=== PATIENT | female | born 1940 | race Caucasian/White ===

== ENCOUNTER 2017-10-26 12:05 | Emergency (ER) | payer MEDICARE, OTHER ==
[~2017-10-26] VITALS: Ht 157.5 cm; Wt 66.0 kg
[~2017-10-26 12:05] MED LIST: ASPI-1159 PO; CALC0.253 PO; CLOP75TA33 PO; FERR-63 PO; FISH OIL PO; FURO-151 PO; FURO-152 PO; GABA-529 PO; GABA-531 PO; LEVO25TA7 PO; LOSA50TA20 PO; LOVA10TA54 PO; METO25TA6 PO; PROT40 PO; VITAMIN B COMPLEX PO
[2017-10-26] MEDS ORDERED: SODIUM CHLORIDE 0.9% 500 ML IV ONE (15:31)
[2017-10-26 15:39] LABS: HEMATOCRIT. 25.7 % (36.0-48.0); HEMOGLOBIN. 8.9 g/dL (12.0-16.0); MEAN CORPUSCULAR HEMOGLOBIN 32.7 pg (28.0-32.0); MEAN CORPUSCULAR VOLUME 94.2 fL (81.0-99.0); MEAN PLATELET VOLUME 8.3 fl (7.4-10.4); PLATELET 182 x1000/uL (130-400); RED BLOOD CELL COUNT 2.72 mill/uL (4.2-5.4); RED CELL DISTRIBUTION WIDTH 14.7 % (11.6-14.6)
[2017-10-26 15:42] LABS: CHLORIDE 98 mEq/L (98-107)
[2017-10-26] MEDS ORDERED: ONDANSETRON HCL 4MG/2ML VIAL IV ONE (15:45)
[2017-10-26 15:53] LABS: PARTIAL THROMBOPLASTIN TIME 27.4 sec (23.4-31.0); PROTHROMBIN TIME 10.7 sec (9.4-11.6)
[2017-10-26 16:13] LABS: PLATELET ESTIMATE NORMAL
[2017-10-26 18:01] VITALS: BP 168/47
== END 2017-10-26 18:13 | disposition home or self-care (01) ==
LOC: ER 12:05
DX: R11.2 Nausea with vomiting, unspecified (principal); R19.7 Diarrhea, unspecified; R42 Dizziness and giddiness; I12.0 Hypertensive chronic kidney disease with stage 5 chronic kidney disease or end stage renal disease; N18.6 End stage renal disease; Z79.82 Long term (current) use of aspirin; Z99.2 Dependence on renal dialysis; Z86.73 Personal history of transient ischemic attack (TIA), and cerebral infarction without residual deficits; Z79.899 Other long term (current) drug therapy
CPT/HCPCS: 36415; 80053; 83690; 85025; 85610; 85730; 96361; 96374; 99285; J2405; J7030

== ENCOUNTER 2017-12-21 09:52 | Inpatient (IN) | payer MEDICARE ==
[~2017-12-21] VITALS: Ht 154.9 cm; Wt 64.0 kg
[2017-12-21 11:54] LABS: CHLORIDE 99 mEq/L (98-107)
[2017-12-21 12:05] LABS: HEMATOCRIT. 30.8 % (36.0-48.0); HEMOGLOBIN. 10.2 g/dL (12.0-16.0); MEAN CORPUSCULAR HEMOGLOBIN 31.5 pg (28.0-32.0); MEAN CORPUSCULAR VOLUME 95.5 fL (81.0-99.0); MEAN PLATELET VOLUME 9.4 fl (7.4-10.4); RED BLOOD CELL COUNT 3.23 mill/uL (4.2-5.4); RED CELL DISTRIBUTION WIDTH 14.5 % (11.6-14.6)
[2017-12-21 12:11] LABS: PLATELET 126 x1000/uL (130-400)
[2017-12-21] MEDS ORDERED: DIPHENHYDRAMINE 50MG/ML VIAL IV PRN (17:15)
[2017-12-21] MEDS ORDERED: GUAIFENESIN 200MG/10ML SUGAR FREE UDC PO PRN (17:15)
[2017-12-21] MEDS ORDERED: LORAZEPAM 2MG/ML CPJ IV PRN (17:15)
[2017-12-21] MEDS ORDERED: HYDROCODONE/ACETAMINOPHEN 5/325MG TABLET PO PRN (17:15)
[2017-12-21] MEDS ORDERED: ACETAMINOPHEN 325MG TABLET PO PRN (17:15)
[2017-12-21] MEDS ORDERED: IPRATROPIUM/ALBUTEROL 0.5-3(2.5)MG/3ML NEB INH PRN (17:15)
[2017-12-21] MEDS ORDERED: DOCUSATE SODIUM 100MG CAPSULE PO PRN (17:15)
[2017-12-21] MEDS ORDERED: MAGNESIUM/ALUMINUM HYDROXIDE/SIMETHICONE 30ML UDC PO PRN (17:15)
[2017-12-21] MEDS ORDERED: NA PHOS,M-B/NA PHOS,DI-BA ENEMA 118ML PR PRN (18:00)
[2017-12-21] MEDS ORDERED: EPOETIN ALFA 4000UNITS/ML VIAL SUBCUT SCH (18:30)
[2017-12-21] MEDS ORDERED: ONDANSETRON HCL 4MG/2ML VIAL IV PRN (20:00)
[2017-12-21] MEDS: CLONIDINE 0.1MG TABLET PO PRN (20:27)
[2017-12-22] VITALS (7 sets, daily range): BP systolic 105–189; BP diastolic 28–51
[2017-12-22 00:29] LABS: CHLORIDE 99 mEq/L (98-107)
[2017-12-22] MEDS: CLONIDINE 0.1MG TABLET PO PRN (03:44)
[2017-12-22] MEDS: ENOXAPARIN 30MG/0.3ML SYR SUBCUT SCH (08:47)
[2017-12-22] MEDS: ASPIRIN 81MG EC TABLET PO SCH (08:47)
[2017-12-22 09:39] LABS: BASOPHILS % 1.1 % (0.0-2.0); EOSINOPHILS % 4.5 % (0.0-5.0); HEMATOCRIT. 24.8 % (36.0-48.0); HEMOGLOBIN. 8.4 g/dL (12.0-16.0); MEAN CORPUSCULAR HEMOGLOBIN 31.7 pg (28.0-32.0); MEAN CORPUSCULAR VOLUME 92.8 fL (81.0-99.0); MEAN PLATELET VOLUME 8.7 fl (7.4-10.4); MONOCYTES % 7.2 % (2.0-8.0); NEUTROPHILS % 68.2 % (40.0-76.0); PLATELET 200 x1000/uL (130-400); RED BLOOD CELL COUNT 2.67 mill/uL (4.2-5.4); RED CELL DISTRIBUTION WIDTH 14.3 % (11.6-14.6)
[2017-12-22 10:26] LABS: CHLORIDE 100 mEq/L (98-107)
[2017-12-22 10:40] LABS: LDL CHOLESTEROL 84 mg/dL (5-100)
[2017-12-22 10:42] LABS: HDL CHOLESTEROL 44 mg/dL (40-59); T4 FREE 1.22 ng/dL (0.76-1.46)
[2017-12-23] VITALS (7 sets, daily range): BP systolic 116–174; BP diastolic 41–58
[2017-12-23] MEDS: ASPIRIN 81MG EC TABLET PO SCH (08:36)
[2017-12-23] MEDS: ENOXAPARIN 30MG/0.3ML SYR SUBCUT SCH (08:37)
== END 2017-12-23 22:55 | DRG 70 ==
LOC: ER 10:06 → 6WST 15:55 → ENRESERV 12-22
PROVIDERS: ADMIT Internal Medicine; ATTEND Internal Medicine
PROC: 5A1D70Z Performance of Urinary Filtration, Intermittent, Less than 6 Hours Per Day (ICD-10-PCS; principal; 2017-12-23)
DX: G93.41 Metabolic encephalopathy (principal); N18.6 End stage renal disease; I13.2 Hypertensive heart and chronic kidney disease with heart failure and with stage 5 chronic kidney disease, or end stage renal disease; E46 Unspecified protein-calorie malnutrition; I95.3 Hypotension of hemodialysis; I50.9 Heart failure, unspecified; G45.9 Transient cerebral ischemic attack, unspecified; D64.9 Anemia, unspecified; R55 Syncope and collapse; F32.9 Major depressive disorder, single episode, unspecified; E78.00 Pure hypercholesterolemia, unspecified; Z79.02 Long term (current) use of antithrombotics/antiplatelets; Z79.82 Long term (current) use of aspirin; Z79.899 Other long term (current) drug therapy; Z86.711 Personal history of pulmonary embolism; Z86.73 Personal history of transient ischemic attack (TIA), and cerebral infarction without residual deficits; Z68.26 Body mass index [BMI] 26.0-26.9, adult
CPT/HCPCS: 36415; 80048; 80053; 80061; 84439; 84443; 84484; 85025; 93005; 97162; 97530; A6261; J0885; J1650; J2060; J7030

== ENCOUNTER 2018-07-16 08:35 | Inpatient (IN) | payer MEDICARE ==
[~2018-07-16] VITALS: Ht 160 cm; Wt 59.4 kg
[2018-07-16] MEDS ORDERED: HYDRALAZINE 20MG/ML VIAL IV ONE (10:30)
[2018-07-16 11:42] LABS: EOSINOPHILS % 2.6 % (0.0-5.0); HEMATOCRIT. 34.7 % (36.0-48.0); HEMOGLOBIN. 11.6 g/dL (12.0-16.0); LYMPHOCYTES % 16.5 % (20.0-50.0); MEAN CORPUSCULAR HEMOGLOBIN 32.2 pg (28.0-32.0); MEAN CORPUSCULAR VOLUME 96.6 fL (81.0-99.0); MEAN PLATELET VOLUME 8.8 fl (7.4-10.4); MONOCYTES % 6.8 % (2.0-8.0); NEUTROPHILS % 73.1 % (40.0-76.0); PLATELET 190 x1000/uL (130-400); RED BLOOD CELL COUNT 3.59 mill/uL (4.2-5.4); RED CELL DISTRIBUTION WIDTH 14.9 % (11.6-14.6)
[2018-07-16 11:47] LABS: CHLORIDE 105 mEq/L (98-107)
[2018-07-16 11:51] LABS: PARTIAL THROMBOPLASTIN TIME 26.6 sec (23.4-31.0)
[2018-07-16] MEDS ORDERED: LIDOCAINE HCL 1% 20ML VIAL (Pyxis) INJ ONE (14:54)
[2018-07-16 18:49] VITALS: BP 162/63
[2018-07-16] MEDS ORDERED: DONE23TA3 PO (18:59)
[2018-07-16] MEDS ORDERED: LOVASTATIN 20 MG PO SCH (19:30)
[2018-07-16] MEDS ORDERED: MEDICATION NOT ON FORMULARY EA (Metoprolol Tartrate 25 MG) PO SCH (19:30)
[2018-07-16] MEDS ORDERED: MEDICATION NOT ON FORMULARY EA (Clopidogrel Bisulfate (Clopidogrel) 75 MG) PO SCH (19:30)
[2018-07-16] MEDS ORDERED: MEDICATION NOT ON FORMULARY EA (Gabapentin 1 CAP) PO SCH (19:30)
[2018-07-16] MEDS ORDERED: MEDICATION NOT ON FORMULARY EA (Aspirin (Aspirin Low Dose) 1 TAB) PO SCH (19:30)
[2018-07-16] MEDS ORDERED: VITAMIN B COMPLEX PO SCH (19:30)
[2018-07-16] MEDS ORDERED: MEDICATION NOT ON FORMULARY EA (Calcitriol 1 CAP) PO SCH (19:30)
[2018-07-16] MEDS ORDERED: FISH OIL PO SCH (19:30)
[2018-07-16] MEDS ORDERED: MEDICATION NOT ON FORMULARY EA (Pantoprazole Sodium (Protonix) 40 MG) PO SCH (19:30)
[2018-07-16] MEDS ORDERED: MEDICATION NOT ON FORMULARY EA (Levothyroxine Sodium 1 TAB) PO SCH (19:30)
[2018-07-16 20:00] VITALS: BP 157/51
[2018-07-16] MEDS ORDERED: MEDICATION NOT ON FORMULARY EA (Losartan Potassium 1 TAB) PO SCH (21:00)
[2018-07-16] MEDS ORDERED: MEDICATION NOT ON FORMULARY EA (Losartan Potassium 50 MG) PO SCH (21:00)
[2018-07-16] MEDS ORDERED: MEDICATION NOT ON FORMULARY EA (Gabapentin 300 MG) PO SCH (21:00)
[2018-07-16] MEDS: PANTOPRAZOLE 40MG DR TABLET PO SCH (22:15)
[2018-07-16] MEDS: FERROUS SULFATE 325MG TABLET PO SCH (22:15)
[2018-07-17 00:27] VITALS: BP 188/51
[2018-07-17] MEDS: IRON SUCROSE COMPLEX 100 MG/5 ML ML IV SCH ×2 (00:54→10:28)
[2018-07-17] MEDS: CLONIDINE 0.2MG TABLET PO PRN (01:07)
[2018-07-17 04:00] VITALS: BP 108/46
[2018-07-17] MEDS: LEVOTHYROXINE SODIUM 25MCG TABLET PO SCH (06:34)
[2018-07-17] MEDS: PANTOPRAZOLE 40MG DR TABLET PO SCH ×2 (06:34→20:59)
[2018-07-17] MEDS ORDERED: FERROUS SULFATE 325MG TABLET PO SCH (07:50)
[2018-07-17] MEDS: FERROUS SULFATE 325MG TABLET PO SCH ×3 (07:50→16:42)
[2018-07-17 08:00] LABS: HEMOGLOBIN. 9.7 g/dL (12.0-16.0); MEAN CORPUSCULAR HEMOGLOBIN 31.9 pg (28.0-32.0); MEAN CORPUSCULAR VOLUME 95.9 fL (81.0-99.0); PLATELET 168 x1000/uL (130-400); RED BLOOD CELL COUNT 3.02 mill/uL (4.2-5.4); RED CELL DISTRIBUTION WIDTH 15.1 % (11.6-14.6)
[2018-07-17] MEDS ORDERED: MEDICATION NOT ON FORMULARY EA (Calcitriol 0.25 MCG) PO SCH ×2 (09:00)
[2018-07-17] MEDS ORDERED: LEVOTHYROXINE SODIUM 25 MCG PO SCH (09:00)
[2018-07-17] MEDS: METOPROLOL TARTRATE 25MG TABLET PO SCH ×2 (09:00→17:00)
[2018-07-17] MEDS ORDERED: MEDICATION NOT ON FORMULARY EA (Gabapentin 100 MG) PO SCH (09:00)
[2018-07-17] MEDS: DONEPEZIL HCL 5MG TABLET PO SCH (10:26)
[2018-07-17] MEDS: GABAPENTIN 100MG CAPSULE PO SCH (10:26)
[2018-07-17] MEDS: FISH OIL/OMEGA-3 FATTY ACIDS 1000MG CAPSULE PO SCH (10:26)
[2018-07-17] MEDS: CLOPIDOGREL 75MG TABLET PO SCH (10:26)
[2018-07-17] MEDS: FOLIC ACID/VITAMIN B COMP W-C TABLET PO SCH (10:26)
[2018-07-17] MEDS: CALCITRIOL 0.25MCG CAPSULE PO SCH (10:26)
[2018-07-17] MEDS: ASPIRIN 81MG TABLET PO SCH (10:27)
[2018-07-17 12:00] VITALS: BP 130/46
[2018-07-17 14:15] LABS: PLATELET ESTIMATE NORMAL
[2018-07-17 16:00] VITALS: BP 130/40
[2018-07-17 20:00] VITALS: BP 150/49
[2018-07-17] MEDS: ATORVASTATIN CALCIUM 10MG TABLET PO SCH (20:58)
[2018-07-17] MEDS: LOSARTAN POTASSIUM 50 MG TABLET PO SCH (20:59)
[2018-07-17] MEDS: GABAPENTIN 300MG CAPSULE PO SCH (21:04)
[2018-07-18 02:00] VITALS: BP 142/54
[2018-07-18 04:00] VITALS: BP 147/58
[2018-07-18] MEDS: PANTOPRAZOLE 40MG DR TABLET PO SCH ×2 (04:44→20:56)
[2018-07-18] MEDS: FERROUS SULFATE 325MG TABLET PO SCH ×3 (04:44→08:14)
[2018-07-18] MEDS: LEVOTHYROXINE SODIUM 25MCG TABLET PO SCH (04:44)
[2018-07-18 08:00] VITALS: BP 128/30
[2018-07-18] MEDS: METOPROLOL TARTRATE 25MG TABLET PO SCH (08:19)
[2018-07-18] MEDS: CALCITRIOL 0.25MCG CAPSULE PO SCH (09:28)
[2018-07-18] MEDS: FISH OIL/OMEGA-3 FATTY ACIDS 1000MG CAPSULE PO SCH (09:28)
[2018-07-18] MEDS: ASPIRIN 81MG TABLET PO SCH (09:28)
[2018-07-18] MEDS: FOLIC ACID/VITAMIN B COMP W-C TABLET PO SCH (09:28)
[2018-07-18] MEDS: GABAPENTIN 100MG CAPSULE PO SCH (09:29)
[2018-07-18] MEDS: CLOPIDOGREL 75MG TABLET PO SCH (09:29)
[2018-07-18] MEDS: DONEPEZIL HCL 5MG TABLET PO SCH (09:29)
[2018-07-18] MEDS: IRON SUCROSE COMPLEX 100 MG/5 ML ML IV SCH (10:45)
[2018-07-18 12:00] VITALS: BP 142/45
[2018-07-18 16:00] VITALS: BP 141/41
[2018-07-18 20:00] VITALS: BP 160/48
[2018-07-18] MEDS: LOSARTAN POTASSIUM 50 MG TABLET PO SCH (20:55)
[2018-07-18] MEDS: ATORVASTATIN CALCIUM 10MG TABLET PO SCH (20:55)
[2018-07-18] MEDS: GABAPENTIN 300MG CAPSULE PO SCH (20:55)
[2018-07-19] VITALS (27 sets, daily range): BP systolic 106–175; BP diastolic 30–77
[2018-07-19] MEDS: CLONIDINE 0.2MG TABLET PO PRN (01:10)
[2018-07-19] MEDS: LEVOTHYROXINE SODIUM 25MCG TABLET PO SCH (06:27)
[2018-07-19] MEDS: PANTOPRAZOLE 40MG DR TABLET PO SCH ×2 (06:27→20:37)
[2018-07-19] MEDS ORDERED: LIDOCAINE HCL 1% 20ML VIAL (Pyxis) INJ ONE (07:33)
[2018-07-19] MEDS ORDERED: IOHEXOL-300 100 ML BOTTLE ONE (07:33)
[2018-07-19] MEDS ORDERED: HEPARIN 1000 UNITS/ML 10ML ONE (07:33)
[2018-07-19] MEDS ORDERED: CEFAZOLIN 1000MG PREMIX 50 ML IV NR (07:45)
[2018-07-19] MEDS ORDERED: FENTANYL CITRATE/PF 50MCG/ML 2ML VIAL ONE (08:00)
[2018-07-19] MEDS ORDERED: CEFAZOLIN 1000MG PREMIX 50 ML IV ONE (08:00)
[2018-07-19] MEDS ORDERED: HEPARIN SODIUM 1,000 UNIT/1ML VIAL IV ONE (08:45)
[2018-07-19] MEDS ORDERED: IOHEXOL-300 50 ML BOTTLE IV ONE (08:58)
[2018-07-19] MEDS: ASPIRIN 81MG TABLET PO SCH (09:00)
[2018-07-19] MEDS: METOPROLOL TARTRATE 25MG TABLET PO SCH ×2 (09:00→18:15)
[2018-07-19] MEDS: CLOPIDOGREL 75MG TABLET PO SCH (09:00)
[2018-07-19] MEDS ORDERED: FENTANYL CITRATE/PF 50MCG/ML 2ML VIAL IV ONE (09:15)
[2018-07-19] MEDS: IRON SUCROSE COMPLEX 100 MG/5 ML ML IV SCH (11:23)
[2018-07-19] MEDS: CALCITRIOL 0.25MCG CAPSULE PO SCH (11:23)
[2018-07-19] MEDS: FISH OIL/OMEGA-3 FATTY ACIDS 1000MG CAPSULE PO SCH (11:23)
[2018-07-19] MEDS: FOLIC ACID/VITAMIN B COMP W-C TABLET PO SCH (11:23)
[2018-07-19] MEDS: GABAPENTIN 100MG CAPSULE PO SCH (11:24)
[2018-07-19] MEDS: DONEPEZIL HCL 5MG TABLET PO SCH (11:24)
[2018-07-19] MEDS: FERROUS SULFATE 325MG TABLET PO SCH ×3 (11:24→18:11)
[2018-07-19] MEDS: ATORVASTATIN CALCIUM 10MG TABLET PO SCH (20:37)
[2018-07-19] MEDS: GABAPENTIN 300MG CAPSULE PO SCH (20:37)
[2018-07-19] MEDS: LOSARTAN POTASSIUM 50 MG TABLET PO SCH (20:37)
[2018-07-19] MEDS ORDERED: EPOETIN ALFA 4000UNITS/ML VIAL SUBCUT SCH (21:00)
[2018-07-20] VITALS: BP 137/42
[2018-07-20 04:00] VITALS: BP 129/41
[2018-07-20] MEDS: LEVOTHYROXINE SODIUM 25MCG TABLET PO SCH (06:09)
[2018-07-20] MEDS: PANTOPRAZOLE 40MG DR TABLET PO SCH (06:09)
[2018-07-20] MEDS: FERROUS SULFATE 325MG TABLET PO SCH ×3 (07:50→15:43)
[2018-07-20 08:00] VITALS: BP 152/42
[2018-07-20] MEDS: CALCITRIOL 0.25MCG CAPSULE PO SCH (10:31)
[2018-07-20] MEDS: FISH OIL/OMEGA-3 FATTY ACIDS 1000MG CAPSULE PO SCH (10:31)
[2018-07-20] MEDS: IRON SUCROSE COMPLEX 100 MG/5 ML ML IV SCH (10:31)
[2018-07-20] MEDS: ASPIRIN 81MG TABLET PO SCH (10:31)
[2018-07-20] MEDS: DONEPEZIL HCL 5MG TABLET PO SCH (10:32)
[2018-07-20] MEDS: METOPROLOL TARTRATE 25MG TABLET PO SCH ×2 (10:32→18:02)
[2018-07-20] MEDS: CLOPIDOGREL 75MG TABLET PO SCH (10:33)
[2018-07-20] MEDS: GABAPENTIN 100MG CAPSULE PO SCH (10:33)
[2018-07-20] MEDS: FOLIC ACID/VITAMIN B COMP W-C TABLET PO SCH (10:33)
[2018-07-20 11:47] VITALS: BP 156/36
[2018-07-20 13:32] LABS: BASOPHILS % 0.7 % (0.0-2.0); EOSINOPHILS % 1.8 % (0.0-5.0); HEMATOCRIT. 29.7 % (36.0-48.0); HEMOGLOBIN. 10.1 g/dL (12.0-16.0); LYMPHOCYTES % 9.6 % (20.0-50.0); MEAN CORPUSCULAR HEMOGLOBIN 32.3 pg (28.0-32.0); MEAN CORPUSCULAR VOLUME 95.1 fL (81.0-99.0); MEAN PLATELET VOLUME 9.2 fl (7.4-10.4); MONOCYTES % 8.2 % (2.0-8.0); NEUTROPHILS % 79.7 % (40.0-76.0); PLATELET 143 x1000/uL (130-400); RED BLOOD CELL COUNT 3.13 mill/uL (4.2-5.4); RED CELL DISTRIBUTION WIDTH 15.1 % (11.6-14.6)
[2018-07-20 15:35] VITALS: BP 143/95
[2018-07-20 20:00] VITALS: BP 160/37
[2018-07-20] MEDS: ATORVASTATIN CALCIUM 10MG TABLET PO SCH (21:06)
[2018-07-20] MEDS: LOSARTAN POTASSIUM 50 MG TABLET PO SCH (21:06)
[2018-07-20] MEDS: GABAPENTIN 300MG CAPSULE PO SCH (21:06)
[2018-07-21] VITALS: BP 166/38
[2018-07-21] MEDS: CLONIDINE 0.2MG TABLET PO PRN (01:09)
[2018-07-21 04:00] VITALS: BP 159/49
[2018-07-21] MEDS: LEVOTHYROXINE SODIUM 25MCG TABLET PO SCH (06:16)
[2018-07-21 08:00] VITALS: BP 135/36
[2018-07-21] MEDS: METOPROLOL TARTRATE 25MG TABLET PO SCH ×2 (08:19→21:00)
[2018-07-21] MEDS: CLOPIDOGREL 75MG TABLET PO SCH (08:19)
[2018-07-21] MEDS: ASPIRIN 81MG TABLET PO SCH (08:19)
[2018-07-21] MEDS: FOLIC ACID/VITAMIN B COMP W-C TABLET PO SCH (08:27)
[2018-07-21] MEDS: GABAPENTIN 100MG CAPSULE PO SCH (08:27)
[2018-07-21] MEDS: FERROUS SULFATE 325MG TABLET PO SCH ×3 (08:27→18:14)
[2018-07-21] MEDS: FISH OIL/OMEGA-3 FATTY ACIDS 1000MG CAPSULE PO SCH (08:27)
[2018-07-21] MEDS: DONEPEZIL HCL 5MG TABLET PO SCH (08:28)
[2018-07-21] MEDS: CALCITRIOL 0.25MCG CAPSULE PO SCH (08:28)
[2018-07-21] MEDS: FAMOTIDINE 20MG TABLET PO SCH (09:15)
[2018-07-21 12:00] VITALS: BP 117/42
[2018-07-21 16:00] VITALS: BP 114/31
[2018-07-21 20:00] VITALS: BP 133/41
[2018-07-21] MEDS: LOSARTAN POTASSIUM 50 MG TABLET PO SCH (21:00)
[2018-07-21] MEDS: ATORVASTATIN CALCIUM 10MG TABLET PO SCH (21:20)
[2018-07-21] MEDS: GABAPENTIN 300MG CAPSULE PO SCH (21:20)
[2018-07-22] VITALS (9 sets, daily range): BP systolic 129–161; BP diastolic 45–59
[2018-07-22] MEDS: LEVOTHYROXINE SODIUM 25MCG TABLET PO SCH (06:17)
[2018-07-22 06:46] LABS: HEMATOCRIT. 28.6 % (36.0-48.0); MEAN CORPUSCULAR HEMOGLOBIN 33.9 pg (28.0-32.0); MEAN CORPUSCULAR VOLUME 96.8 fL (81.0-99.0); RED BLOOD CELL COUNT 2.95 mill/uL (4.2-5.4); RED CELL DISTRIBUTION WIDTH 15.1 % (11.6-14.6)
[2018-07-22 08:34] LABS: PLATELET ESTIMATE NORMAL
[2018-07-22 08:53] LABS: PLATELET 194 x1000/uL (130-400)
[2018-07-22 08:54] LABS: MEAN PLATELET VOLUME 10.2 fl (7.4-10.4)
[2018-07-22] MEDS: FAMOTIDINE 20MG TABLET PO SCH (09:22)
[2018-07-22] MEDS: FISH OIL/OMEGA-3 FATTY ACIDS 1000MG CAPSULE PO SCH (09:22)
[2018-07-22] MEDS: FERROUS SULFATE 325MG TABLET PO SCH ×2 (09:22→12:59)
[2018-07-22] MEDS: FOLIC ACID/VITAMIN B COMP W-C TABLET PO SCH (09:22)
[2018-07-22] MEDS: ASPIRIN 81MG TABLET PO SCH (09:22)
[2018-07-22] MEDS: GABAPENTIN 100MG CAPSULE PO SCH (09:22)
[2018-07-22] MEDS: CALCITRIOL 0.25MCG CAPSULE PO SCH (09:22)
[2018-07-22] MEDS: CLOPIDOGREL 75MG TABLET PO SCH (09:24)
[2018-07-22] MEDS: METOPROLOL TARTRATE 25MG TABLET PO SCH (09:24)
[2018-07-22] MEDS: DONEPEZIL HCL 5MG TABLET PO SCH (09:25)
== END 2018-07-22 16:46 | disposition home or self-care (01) | DRG 252 ==
LOC: ER 08:35 → 6WST 11:52 → EDBEDREQ 11:56 → ENRESERV 15:57
PROVIDERS: ADMIT Internal Medicine; ATTEND Internal Medicine
PROC: 02HV33Z Insertion of Infusion Device into Superior Vena Cava, Percutaneous Approach (ICD-10-PCS; principal; 2018-07-16)
PROC: B518ZZA Fluoroscopy of Superior Vena Cava, Guidance (ICD-10-PCS; 2018-07-16)
PROC: B548ZZA Ultrasonography of Superior Vena Cava, Guidance (ICD-10-PCS; 2018-07-16)
PROC: 5A1D70Z Performance of Urinary Filtration, Intermittent, Less than 6 Hours Per Day (ICD-10-PCS; 2018-07-17)
PROC: 05773ZZ Dilation of Right Axillary Vein, Percutaneous Approach (ICD-10-PCS; 2018-07-19)
PROC: 05CY3ZZ Extirpation of Matter from Upper Vein, Percutaneous Approach (ICD-10-PCS; 2018-07-19)
PROC: 057Y3DZ Dilation of Upper Vein with Intraluminal Device, Percutaneous Approach (ICD-10-PCS; 2018-07-19)
PROC: 03CY3ZZ Extirpation of Matter from Upper Artery, Percutaneous Approach (ICD-10-PCS; 2018-07-19)
PROC: B5181ZA Fluoroscopy of Superior Vena Cava using Low Osmolar Contrast, Guidance (ICD-10-PCS; 2018-07-19)
PROC: B5171ZA Fluoroscopy of Left Subclavian Vein using Low Osmolar Contrast, Guidance (ICD-10-PCS; 2018-07-19)
PROC: B31N1ZZ Fluoroscopy of Other Upper Arteries using Low Osmolar Contrast (ICD-10-PCS; 2018-07-19)
PROC: B51W1ZZ Fluoroscopy of Dialysis Shunt/Fistula using Low Osmolar Contrast (ICD-10-PCS; 2018-07-19)
PROC: 5A1D70Z Performance of Urinary Filtration, Intermittent, Less than 6 Hours Per Day (ICD-10-PCS; 2018-07-19)
PROC: 5A1D70Z Performance of Urinary Filtration, Intermittent, Less than 6 Hours Per Day (ICD-10-PCS; 2018-07-21)
DX: T82.510A Breakdown (mechanical) of surgically created arteriovenous fistula, initial encounter (principal); N18.6 End stage renal disease; E46 Unspecified protein-calorie malnutrition; I13.11 Hypertensive heart and chronic kidney disease without heart failure, with stage 5 chronic kidney disease, or end stage renal disease; E03.9 Hypothyroidism, unspecified; E78.00 Pure hypercholesterolemia, unspecified; I73.9 Peripheral vascular disease, unspecified; I65.21 Occlusion and stenosis of right carotid artery; E87.5 Hyperkalemia; T82.858A Stenosis of other vascular prosthetic devices, implants and grafts, initial encounter; R00.1 Bradycardia, unspecified; R55 Syncope and collapse; Y83.2 Surgical operation with anastomosis, bypass or graft as the cause of abnormal reaction of the patient, or of later complication, without mention of misadventure at the time of the procedure; D64.9 Anemia, unspecified; E78.5 Hyperlipidemia, unspecified; Z86.73 Personal history of transient ischemic attack (TIA), and cerebral infarction without residual deficits; Z99.2 Dependence on renal dialysis; Z68.23 Body mass index [BMI] 23.0-23.9, adult; Z79.899 Other long term (current) drug therapy; Z79.82 Long term (current) use of aspirin; Y92.89 Other specified places as the place of occurrence of the external cause
CPT/HCPCS: 36415; 36556; 36906; 36907; 70544; 70553; 71045; 76937; 77001; 80048; 82962; 83735; 84443; 85007; 85027; 93005; 93306; 93880; 96374; 97162; 97166; 99285; C1752; C1769; J0360; J0690; J0885; J1642; J1644; J3010; J3490; J7050; Q9967

== ENCOUNTER 2018-07-30 09:27 | Inpatient (IN) | payer MEDICARE ==
[~2018-07-30] VITALS: Ht 157.5 cm; Wt 67.1 kg
[~2018-07-30 09:27] MED LIST changes: +DONE23TA3 PO; -FURO-151 PO; -FURO-152 PO
[2018-07-30 10:51] LABS: BG BASE EXCESS 6.1 mmol/L (-2.0-2.0); BG CARBOXYHEMOGLOBIN 0.6 % (0.5-1.5); BG DEOXYHEMOGLOBIN 5.9 % (0.0-5.0); BG FRACTION INSPIRED OXYGEN 21; BG HCO3 ACT 30.6 mmol/L (22.0-26.0); BG METHEMOGLOBIN 0.3 % (0.0-1.5); BG OXYHEMOGLOBIN 93.2 % (94.0-97.0); BG PCO2 44.2 mmHg (35.0-45.0); BG PH 7.458 (7.350-7.450); BG PO2 71.5 mmHg (75.0-100.0); BG SAMPLE SITE RIGHT RADIAL; BG TOTAL HEMOGLOBIN 8.8 g/dL (12.0-18.0); BG VENT MODE ROOM AIR
[2018-07-30 11:52] LABS: BASOPHILS % 1.2 % (0.0-2.0); EOSINOPHILS % 3.1 % (0.0-5.0); HEMATOCRIT. 28.7 % (36.0-48.0); HEMOGLOBIN. 9.7 g/dL (12.0-16.0); LYMPHOCYTES % 16.4 % (20.0-50.0); MEAN CORPUSCULAR HEMOGLOBIN 32.9 pg (28.0-32.0); MEAN CORPUSCULAR VOLUME 97.3 fL (81.0-99.0); MEAN PLATELET VOLUME 8.6 fl (7.4-10.4); NEUTROPHILS % 74.3 % (40.0-76.0); PLATELET 228 x1000/uL (130-400); RED BLOOD CELL COUNT 2.95 mill/uL (4.2-5.4); RED CELL DISTRIBUTION WIDTH 15.1 % (11.6-14.6)
[2018-07-30 12:02] LABS: PARTIAL THROMBOPLASTIN TIME 26.1 sec (23.4-31.0)
[2018-07-30 12:07] LABS: PHOSPHORUS 3.3 mg/dL (2.5-4.9)
[2018-07-30] MEDS ORDERED: ONDANSETRON HCL 4MG/2ML INJ IV PRN (12:45)
[2018-07-30] MEDS ORDERED: ACETAMINOPHEN 325MG TABLET PO PRN (12:45)
[2018-07-30] MEDS ORDERED: SODIUM BICARBONATE 4% (2.4MEQ) 5ML VIAL IV ONE (13:03)
[2018-07-30] MEDS ORDERED: LIDOCAINE HCL 1% 20ML VIAL (Pyxis) INJ ONE (13:04)
[2018-07-30] MEDS: NIFEDIPINE XL 60MG TAB PO SCH ×2 (13:15→20:30)
[2018-07-30] MEDS ORDERED: LIDOCAINE HCL/PF 1% 2ML VIAL ONE (14:48)
[2018-07-30 16:17] VITALS: BP 198/61
[2018-07-30] MEDS: LOSARTAN POTASSIUM 100 MG TABLET PO SCH (16:45)
[2018-07-30] MEDS ORDERED: CLONIDINE 0.1MG TABLET PO PRN (16:45)
[2018-07-30 17:54] VITALS: BP 198/61
[2018-07-30] MEDS ORDERED: CEFAZOLIN 1000MG PREMIX 50 ML IV SCH (18:00)
[2018-07-30] MEDS ORDERED: GABA-529 PO (18:10)
[2018-07-30] MEDS ORDERED: ASCO500C15 PO (18:13)
[2018-07-30] MEDS ORDERED: CYAN1TAB43 MT (18:13)
[2018-07-30 20:00] VITALS: BP 169/48
[2018-07-30] MEDS: CLONIDINE 0.1MG TABLET PO SCH (20:30)
[2018-07-30] MEDS: ATORVASTATIN CALCIUM 20MG TABLET PO SCH (20:32)
[2018-07-30] MEDS: IRON SUCROSE COMPLEX 100 MG/5 ML ML IV SCH (20:33)
[2018-07-30] MEDS: EPOETIN ALFA 4000UNITS/ML VIAL SUBCUT SCH (21:19)
[2018-07-31] VITALS (7 sets, daily range): BP systolic 114–160; BP diastolic 33–83
[2018-07-31] MEDS: CLONIDINE 0.1MG TABLET PO SCH ×3 (05:52→21:31)
[2018-07-31 06:53] LABS: BASOPHILS % 1.1 % (0.0-2.0); EOSINOPHILS % 2.3 % (0.0-5.0); HEMATOCRIT. 23.7 % (36.0-48.0); LYMPHOCYTES % 14.5 % (20.0-50.0); NEUTROPHILS % 75.1 % (40.0-76.0); RED BLOOD CELL COUNT 2.42 mill/uL (4.2-5.4); RED CELL DISTRIBUTION WIDTH 15.4 % (11.6-14.6)
[2018-07-31] MEDS: NIFEDIPINE XL 60MG TAB PO SCH ×2 (08:51→21:00)
[2018-07-31] MEDS: LOSARTAN POTASSIUM 100 MG TABLET PO SCH (08:51)
[2018-07-31 09:17] LABS: PLATELET 187 x1000/uL (130-400)
[2018-07-31] MEDS: ATORVASTATIN CALCIUM 20MG TABLET PO SCH (21:36)
[2018-07-31] MEDS: IRON SUCROSE COMPLEX 100 MG/5 ML ML IV SCH (23:17)
[2018-08-01] VITALS: BP 128/37
[2018-08-01] MEDS: CEFAZOLIN 1000MG PREMIX 50 ML IV SCH (00:48)
[2018-08-01 04:00] VITALS: BP 155/44
[2018-08-01] MEDS: CLONIDINE 0.1MG TABLET PO SCH ×3 (05:19→23:00)
[2018-08-01 06:14] LABS: BASOPHILS % 1.2 % (0.0-2.0); EOSINOPHILS % 3.9 % (0.0-5.0); HEMATOCRIT. 23.1 % (36.0-48.0); HEMOGLOBIN. 7.8 g/dL (12.0-16.0); LYMPHOCYTES % 25.3 % (20.0-50.0); MEAN CORPUSCULAR HEMOGLOBIN 32.8 pg (28.0-32.0); MEAN CORPUSCULAR VOLUME 97.7 fL (81.0-99.0); MEAN PLATELET VOLUME 9.3 fl (7.4-10.4); MONOCYTES % 8.9 % (2.0-8.0); NEUTROPHILS % 60.7 % (40.0-76.0); PLATELET 185 x1000/uL (130-400); RED BLOOD CELL COUNT 2.37 mill/uL (4.2-5.4); RED CELL DISTRIBUTION WIDTH 15.2 % (11.6-14.6)
[2018-08-01 08:11] VITALS: BP 166/51
[2018-08-01] MEDS: LOSARTAN POTASSIUM 100 MG TABLET PO SCH (09:00)
[2018-08-01] MEDS: NIFEDIPINE XL 60MG TAB PO SCH ×2 (10:02→20:37)
[2018-08-01] MEDS ORDERED: GELATIN SPONGE,ABSORBABLE 12-7MM SPONGE ONE (10:21)
[2018-08-01 12:21] VITALS: BP 160/36
[2018-08-01 15:36] VITALS: BP 137/47
[2018-08-01] MEDS: DOCUSATE SODIUM 100MG CAPSULE PO SCH (17:30)
[2018-08-01] MEDS: FOLIC ACID/VITAMIN B COMP W-C TABLET PO SCH (19:17)
[2018-08-01 20:31] VITALS: BP 160/46
[2018-08-01] MEDS: ATORVASTATIN CALCIUM 20MG TABLET PO SCH (20:37)
[2018-08-01] MEDS: IRON SUCROSE COMPLEX 100 MG/5 ML ML IV SCH (20:37)
[2018-08-02] VITALS (7 sets, daily range): BP systolic 109–154; BP diastolic 37–78
[2018-08-02] MEDS: CEFAZOLIN 1000MG PREMIX 50 ML IV SCH (01:01)
[2018-08-02] MEDS: CLONIDINE 0.1MG TABLET PO SCH ×3 (06:00→21:23)
[2018-08-02 06:22] LABS: BASOPHILS % 0.9 % (0.0-2.0); EOSINOPHILS % 4.7 % (0.0-5.0); HEMATOCRIT. 22.5 % (36.0-48.0); HEMOGLOBIN. 7.6 g/dL (12.0-16.0); LYMPHOCYTES % 22.1 % (20.0-50.0); MEAN CORPUSCULAR HEMOGLOBIN 32.6 pg (28.0-32.0); MEAN CORPUSCULAR VOLUME 96.7 fL (81.0-99.0); MEAN PLATELET VOLUME 9.7 fl (7.4-10.4); NEUTROPHILS % 61.3 % (40.0-76.0); PLATELET 169 x1000/uL (130-400); RED BLOOD CELL COUNT 2.32 mill/uL (4.2-5.4); RED CELL DISTRIBUTION WIDTH 15.4 % (11.6-14.6)
[2018-08-02] MEDS: DOCUSATE SODIUM 100MG CAPSULE PO SCH ×2 (09:19→17:00)
[2018-08-02] MEDS: FOLIC ACID/VITAMIN B COMP W-C TABLET PO SCH (09:19)
[2018-08-02] MEDS: LOSARTAN POTASSIUM 100 MG TABLET PO SCH (09:19)
[2018-08-02] MEDS: NIFEDIPINE XL 60MG TAB PO SCH ×2 (09:20→20:21)
[2018-08-02] MEDS ORDERED: GELATIN SPONGE,ABSORBABLE 12-7MM SPONGE ONE (11:33)
[2018-08-02] MEDS ORDERED: PAPAVERINE HCL 30 MG/ML 2ML IV ONE (11:33)
[2018-08-02] MEDS ORDERED: BACITRACIN 15GM TUBE TOP ONE (11:34)
[2018-08-02] MEDS ORDERED: HEPARIN 100 UNITS/1 ML VIAL ONE (11:34)
[2018-08-02] MEDS ORDERED: THROMBIN (BOVINE) 5000 UNITS/VIAL TOP ONE ×2 (11:34→11:36)
[2018-08-02] MEDS ORDERED: BUPIVACAINE HCL/PF 0.5% (5MG/ML) 10ML ONE (11:35)
[2018-08-02] MEDS ORDERED: LIDOCAINE HCL/PF 1% 10 MG/ML 5ML VIAL ONE (11:36)
[2018-08-02] MEDS ORDERED: BACITRACIN 50,000 UNITS/VIAL ONE (11:36)
[2018-08-02] MEDS ORDERED: HEPARIN SODIUM 1,000 UNIT/1ML VIAL IV ONE ×2 (11:37→14:23)
[2018-08-02] MEDS ORDERED: FENTANYL CITRATE/PF 50MCG/ML 2ML VIAL ONE (13:31)
[2018-08-02] MEDS ORDERED: MIDAZOLAM HCL 2 MG/2 ML VIAL ONE (13:31)
[2018-08-02] MEDS ORDERED: PROPOFOL 200MG/20ML VIAL IV ONE (13:31)
[2018-08-02] MEDS ORDERED: PROPOFOL 10MG/ML 100ML 100 ML IV ONE (13:54)
[2018-08-02] MEDS ORDERED: PHENYLEPHRINE HCL 10 MG/ML 1ML (IV VIAL) IV ONE (14:03)
[2018-08-02] MEDS ORDERED: ONDANSETRON HCL 4MG/2ML INJ ONE (14:03)
[2018-08-02] MEDS ORDERED: METOCLOPRAMIDE HCL 10MG/2ML VIAL ONE (14:03)
[2018-08-02] MEDS ORDERED: SUCCINYLCHOLINE CHLORIDE 200MG/10ML IV ONE (14:10)
[2018-08-02] MEDS ORDERED: MORPHINE SULFATE 10 MG/ML CPJ IV PRN (14:15)
[2018-08-02] MEDS ORDERED: HYDROMORPHONE HCL/PF 2MG/ML CPJ IV PRN (14:15)
[2018-08-02] MEDS ORDERED: ONDANSETRON HCL 4MG/2ML INJ IV PRN (14:15)
[2018-08-02] MEDS ORDERED: FENTANYL CITRATE/PF 50MCG/ML 2ML VIAL IV PRN (14:15)
[2018-08-02] MEDS ORDERED: MEPERIDINE HCL/PF 25MG/ML CPJ IV PRN (14:15)
[2018-08-02] MEDS ORDERED: SKIN ADHESIVE 0.7 GM EA TOP ONE (15:19)
[2018-08-02] MEDS ORDERED: HEPARIN SODIUM 1,000 UNIT/1ML VIAL IV NR (18:30)
[2018-08-02] MEDS: ATORVASTATIN CALCIUM 20MG TABLET PO SCH (21:23)
[2018-08-02] MEDS: EPOETIN ALFA 4000UNITS/ML VIAL SUBCUT SCH (21:23)
[2018-08-03] MEDS: CEFAZOLIN 1000MG PREMIX 50 ML IV SCH (00:57)
[2018-08-03 04:00] VITALS: BP 168/40
[2018-08-03 06:01] LABS: BASOPHILS % 1.1 % (0.0-2.0); HEMATOCRIT. 23.9 % (36.0-48.0); HEMOGLOBIN. 8.2 g/dL (12.0-16.0); LYMPHOCYTES % 9.2 % (20.0-50.0); MEAN CORPUSCULAR HEMOGLOBIN 33.1 pg (28.0-32.0); MEAN CORPUSCULAR VOLUME 96.8 fL (81.0-99.0); MEAN PLATELET VOLUME 9.2 fl (7.4-10.4); MONOCYTES % 6.2 % (2.0-8.0); NEUTROPHILS % 80.5 % (40.0-76.0); PLATELET 172 x1000/uL (130-400); RED BLOOD CELL COUNT 2.46 mill/uL (4.2-5.4); RED CELL DISTRIBUTION WIDTH 15.4 % (11.6-14.6)
[2018-08-03] MEDS: CLONIDINE 0.1MG TABLET PO SCH ×2 (06:09→14:00)
[2018-08-03 08:00] VITALS: BP 125/40
[2018-08-03] MEDS: LOSARTAN POTASSIUM 100 MG TABLET PO SCH (09:00)
[2018-08-03] MEDS: NIFEDIPINE XL 60MG TAB PO SCH (09:00)
[2018-08-03] MEDS: DOCUSATE SODIUM 100MG CAPSULE PO SCH ×2 (09:00→17:00)
[2018-08-03] MEDS: FOLIC ACID/VITAMIN B COMP W-C TABLET PO SCH (09:03)
[2018-08-03 11:24] VITALS: BP 122/33
[2018-08-03] MEDS ORDERED: BENZONATATE 100MG CAPSULE PO PRN (11:45)
[2018-08-03 15:51] VITALS: BP 123/69
[2018-08-03 20:00] VITALS: BP 155/39
[2018-08-03 20:01] VITALS: BP 155/39
== END 2018-08-03 20:40 | disposition home or self-care (01) | DRG 252 ==
LOC: ER 09:27 → EDBEDREQ 12:17 → ENRESERV 13:26 → 6WST 14:02 → EDBEDREQ 14:06
PROVIDERS: ADMIT Internal Medicine; ATTEND Internal Medicine
PROC: 02HV33Z Insertion of Infusion Device into Superior Vena Cava, Percutaneous Approach (ICD-10-PCS; 2018-07-30)
PROC: B548ZZA Ultrasonography of Superior Vena Cava, Guidance (ICD-10-PCS; 2018-07-30)
PROC: B5181ZA Fluoroscopy of Superior Vena Cava using Low Osmolar Contrast, Guidance (ICD-10-PCS; 2018-07-30)
PROC: 5A1D70Z Performance of Urinary Filtration, Intermittent, Less than 6 Hours Per Day (ICD-10-PCS; 2018-08-01)
PROC: 05CY0ZZ Extirpation of Matter from Upper Vein, Open Approach (ICD-10-PCS; 2018-08-02)
PROC: 03CY0ZZ Extirpation of Matter from Upper Artery, Open Approach (ICD-10-PCS; 2018-08-02)
PROC: 03180KD Bypass Left Brachial Artery to Upper Arm Vein with Nonautologous Tissue Substitute, Open Approach (ICD-10-PCS; principal; 2018-08-02 12:30)
DX: T82.868A Thrombosis due to vascular prosthetic devices, implants and grafts, initial encounter (principal); N18.6 End stage renal disease; I13.11 Hypertensive heart and chronic kidney disease without heart failure, with stage 5 chronic kidney disease, or end stage renal disease; N17.9 Acute kidney failure, unspecified; Z86.73 Personal history of transient ischemic attack (TIA), and cerebral infarction without residual deficits; Z99.2 Dependence on renal dialysis; E78.5 Hyperlipidemia, unspecified; D63.8 Anemia in other chronic diseases classified elsewhere; E87.5 Hyperkalemia; E78.00 Pure hypercholesterolemia, unspecified; Y83.2 Surgical operation with anastomosis, bypass or graft as the cause of abnormal reaction of the patient, or of later complication, without mention of misadventure at the time of the procedure; Z85.828 Personal history of other malignant neoplasm of skin; Z98.891 History of uterine scar from previous surgery; Z79.82 Long term (current) use of aspirin; Z79.899 Other long term (current) drug therapy; Y92.89 Other specified places as the place of occurrence of the external cause
CPT/HCPCS: 36415; 36556; 36600; 71045; 76937; 77001; 80048; 82375; 82805; 83735; 84100; 86850; 86900; 93005; 96374; 99291; C1752; C1893; J0330; J0690; J0885; J1642; J1644; J2250; J2370; J2405; J2440; J2704; J2765; J3010; J3490; J7050

== ENCOUNTER 2018-09-03 16:53 | Inpatient (IN) | payer MEDICARE ==
[~2018-09-03] VITALS: Ht 157.5 cm; Wt 61.7 kg
[~2018-09-03 16:53] MED LIST changes: +ASCO500C15 PO; +CYAN1TAB43 MT; -METO25TA6 PO; -PROT40 PO; -VITAMIN B COMPLEX PO
[2018-09-03 21:32] LABS: BASOPHILS % 0.8 % (0.0-2.0); EOSINOPHILS % 1.4 % (0.0-5.0); HEMATOCRIT. 22.1 % (36.0-48.0); HEMOGLOBIN. 7.4 g/dL (12.0-16.0); LYMPHOCYTES % 19.5 % (20.0-50.0); MEAN CORPUSCULAR HEMOGLOBIN 33.9 pg (28.0-32.0); MEAN CORPUSCULAR VOLUME 101.7 fL (81.0-99.0); MEAN PLATELET VOLUME 8.9 fl (7.4-10.4); MONOCYTES % 9.3 % (2.0-8.0); PLATELET 189 x1000/uL (130-400); RED BLOOD CELL COUNT 2.18 mill/uL (4.2-5.4); RED CELL DISTRIBUTION WIDTH 15.3 % (11.6-14.6)
[2018-09-03 21:36] LABS: CHLORIDE 98 mEq/L (98-107)
[2018-09-03 21:39] LABS: PARTIAL THROMBOPLASTIN TIME 25.2 sec (23.4-31.0)
[2018-09-04] VITALS (12 sets, daily range): BP systolic 132–181; BP diastolic 31–52
[2018-09-04] MEDS: CLOPIDOGREL 75MG TABLET PO SCH (08:49)
[2018-09-04] MEDS: CYANOCOBALAMIN/FA/PYRIDOXINE TABLET PO SCH (08:49)
[2018-09-04] MEDS: FISH OIL/OMEGA-3 FATTY ACIDS 1000MG CAPSULE PO SCH (08:49)
[2018-09-04] MEDS: CALCITRIOL 0.25MCG CAPSULE PO SCH ×2 (08:49→18:08)
[2018-09-04] MEDS: DONEPEZIL HCL 5MG TABLET PO SCH (08:49)
[2018-09-04] MEDS: GABAPENTIN 100MG CAPSULE PO SCH (08:49)
[2018-09-04] MEDS: ASPIRIN 81MG TABLET PO SCH (08:50)
[2018-09-04] MEDS: LEVOTHYROXINE SODIUM 25MCG TABLET PO SCH (08:50)
[2018-09-04] MEDS: FERROUS SULFATE 325MG TABLET PO SCH ×3 (08:50→18:08)
[2018-09-04] MEDS: ASCORBIC ACID 250 MG TABLET PO SCH (08:50)
[2018-09-04] MEDS: LOSARTAN POTASSIUM 50 MG TABLET PO SCH ×2 (08:54→20:48)
[2018-09-04] MEDS ORDERED: LOVASTATIN 20 MG PO SCH (09:00)
[2018-09-04] MEDS ORDERED: [UNRECOGNIZED DRUG - OTHER] MT SCH (09:00)
[2018-09-04] MEDS ORDERED: MEDICATION NOT ON FORMULARY EA (Aspirin (Aspirin Low Dose) 1 TAB) PO SCH (09:00)
[2018-09-04] MEDS ORDERED: MEDICATION NOT ON FORMULARY EA (Calcitriol 1 CAP) PO SCH (09:00)
[2018-09-04] MEDS ORDERED: FOLIC ACID MT SCH (09:00)
[2018-09-04] MEDS ORDERED: MEDICATION NOT ON FORMULARY EA (Clopidogrel Bisulfate (Clopidogrel) 75 MG) PO SCH (09:00)
[2018-09-04] MEDS ORDERED: MEDICATION NOT ON FORMULARY EA (Levothyroxine Sodium 1 TAB) PO SCH (09:00)
[2018-09-04] MEDS ORDERED: MEDICATION NOT ON FORMULARY EA (Gabapentin 1 CAP) PO SCH (09:00)
[2018-09-04] MEDS ORDERED: MEDICATION NOT ON FORMULARY EA (Losartan Potassium 1 TAB) PO SCH (09:00)
[2018-09-04] MEDS ORDERED: MEDICATION NOT ON FORMULARY EA (Ascorbic Acid (Vitamin C) 250 MG) PO SCH (09:00)
[2018-09-04] MEDS ORDERED: CYANOCOBALAMIN MT SCH (09:00)
[2018-09-04] MEDS ORDERED: FISH OIL PO SCH (09:00)
[2018-09-04] MEDS ORDERED: DONEPEZIL HCL 5 MG PO SCH (09:00)
[2018-09-04 11:33] LABS: BASOPHILS % 1.7 % (0.0-2.0); EOSINOPHILS % 2.9 % (0.0-5.0); HEMATOCRIT. 23.6 % (36.0-48.0); HEMOGLOBIN. 7.9 g/dL (12.0-16.0); LYMPHOCYTES % 18.7 % (20.0-50.0); MEAN CORPUSCULAR HEMOGLOBIN 33.3 pg (28.0-32.0); MEAN CORPUSCULAR VOLUME 99.7 fL (81.0-99.0); MEAN PLATELET VOLUME 8.9 fl (7.4-10.4); MONOCYTES % 9.3 % (2.0-8.0); NEUTROPHILS % 67.4 % (40.0-76.0); PLATELET 178 x1000/uL (130-400); RED BLOOD CELL COUNT 2.37 mill/uL (4.2-5.4); RED CELL DISTRIBUTION WIDTH 14.8 % (11.6-14.6)
[2018-09-04] MEDS: CLONIDINE 0.1MG TABLET PO PRN (18:41)
[2018-09-04] MEDS: AMLODIPINE 5MG TABLET PO SCH (20:48)
[2018-09-04] MEDS: GABAPENTIN 300MG CAPSULE PO SCH (20:49)
[2018-09-04] MEDS: ATORVASTATIN CALCIUM 10MG TABLET PO SCH (20:49)
[2018-09-04] MEDS ORDERED: MEDICATION NOT ON FORMULARY EA (Gabapentin 300 MG) PO SCH (21:00)
[2018-09-05] VITALS (9 sets, daily range): BP systolic 104–145; BP diastolic 25–62
[2018-09-05] MEDS ORDERED: IRON SUCROSE COMPLEX 100 MG/5 ML ML IV SCH ×2 (03:15→09:00)
[2018-09-05] MEDS: LEVOTHYROXINE SODIUM 25MCG TABLET PO SCH (06:19)
[2018-09-05 07:21] LABS: BASOPHILS % 1.2 % (0.0-2.0); EOSINOPHILS % 3.9 % (0.0-5.0); HEMATOCRIT. 21.8 % (36.0-48.0); HEMOGLOBIN. 7.6 g/dL (12.0-16.0); LYMPHOCYTES % 30.3 % (20.0-50.0); MEAN CORPUSCULAR HEMOGLOBIN 34.6 pg (28.0-32.0); MEAN CORPUSCULAR VOLUME 100.1 fL (81.0-99.0); MEAN PLATELET VOLUME 9.3 fl (7.4-10.4); MONOCYTES % 8.7 % (2.0-8.0); NEUTROPHILS % 55.9 % (40.0-76.0); PLATELET 164 x1000/uL (130-400); RED BLOOD CELL COUNT 2.18 mill/uL (4.2-5.4); RED CELL DISTRIBUTION WIDTH 14.5 % (11.6-14.6)
[2018-09-05] MEDS: CLOPIDOGREL 75MG TABLET PO SCH (08:45)
[2018-09-05] MEDS: FERROUS SULFATE 325MG TABLET PO SCH ×3 (08:45→18:06)
[2018-09-05] MEDS: GABAPENTIN 100MG CAPSULE PO SCH (08:45)
[2018-09-05] MEDS: CYANOCOBALAMIN/FA/PYRIDOXINE TABLET PO SCH (08:45)
[2018-09-05] MEDS: ASCORBIC ACID 250 MG TABLET PO SCH (08:45)
[2018-09-05] MEDS: CALCITRIOL 0.25MCG CAPSULE PO SCH ×2 (08:45→18:06)
[2018-09-05] MEDS: LOSARTAN POTASSIUM 50 MG TABLET PO SCH ×2 (08:46→20:57)
[2018-09-05] MEDS: ASPIRIN 81MG TABLET PO SCH (08:46)
[2018-09-05] MEDS: DONEPEZIL HCL 5MG TABLET PO SCH (08:46)
[2018-09-05] MEDS: FISH OIL/OMEGA-3 FATTY ACIDS 1000MG CAPSULE PO SCH (08:46)
[2018-09-05] MEDS: AMLODIPINE 5MG TABLET PO SCH ×2 (08:52→20:57)
[2018-09-05] MEDS ORDERED: EPOETIN ALFA 4000UNITS/ML VIAL SUBCUT SCH (09:00)
[2018-09-05 19:25] LABS: HEMATOCRIT 25.9 % (36.0-48.0); HEMOGLOBIN 8.6 g/dL (12.0-16.0)
[2018-09-05] MEDS: ATORVASTATIN CALCIUM 10MG TABLET PO SCH (20:57)
[2018-09-05] MEDS: GABAPENTIN 300MG CAPSULE PO SCH (20:57)
[2018-09-06] VITALS (7 sets, daily range): BP systolic 140–178; BP diastolic 33–47
[2018-09-06 01:29] LABS: HEMATOCRIT 22.8 % (36.0-48.0); HEMOGLOBIN 7.7 g/dL (12.0-16.0)
[2018-09-06] MEDS: LEVOTHYROXINE SODIUM 25MCG TABLET PO SCH (06:13)
[2018-09-06 07:37] LABS: BASOPHILS % 1.3 % (0.0-2.0); HEMATOCRIT. 23.2 % (36.0-48.0); HEMOGLOBIN. 7.8 g/dL (12.0-16.0); LYMPHOCYTES % 23.3 % (20.0-50.0); MEAN CORPUSCULAR HEMOGLOBIN 33.7 pg (28.0-32.0); MEAN CORPUSCULAR VOLUME 99.9 fL (81.0-99.0); MONOCYTES % 10.2 % (2.0-8.0); NEUTROPHILS % 60.2 % (40.0-76.0); PLATELET 170 x1000/uL (130-400); RED BLOOD CELL COUNT 2.32 mill/uL (4.2-5.4); RED CELL DISTRIBUTION WIDTH 14.3 % (11.6-14.6)
[2018-09-06 08:39] LABS: FERRITIN 305 ng/mL (10-291)
[2018-09-06] MEDS: PANTOPRAZOLE SODIUM 40 MG/VIAL IV SCH (09:00)
[2018-09-06] MEDS: GABAPENTIN 100MG CAPSULE PO SCH (09:00)
[2018-09-06] MEDS: FISH OIL/OMEGA-3 FATTY ACIDS 1000MG CAPSULE PO SCH (09:00)
[2018-09-06] MEDS: CYANOCOBALAMIN/FA/PYRIDOXINE TABLET PO SCH (09:00)
[2018-09-06] MEDS: DONEPEZIL HCL 5MG TABLET PO SCH (09:00)
[2018-09-06] MEDS: AMLODIPINE 5MG TABLET PO SCH ×2 (09:00→19:56)
[2018-09-06] MEDS: CALCITRIOL 0.25MCG CAPSULE PO SCH ×2 (09:00→17:00)
[2018-09-06] MEDS: LOSARTAN POTASSIUM 50 MG TABLET PO SCH ×2 (09:00→19:56)
[2018-09-06] MEDS: FERROUS SULFATE 325MG TABLET PO SCH ×4 (09:00→17:00)
[2018-09-06] MEDS: ASCORBIC ACID 250 MG TABLET PO SCH (09:00)
[2018-09-06] MEDS: ASPIRIN 81MG TABLET PO SCH (09:00)
[2018-09-06] MEDS: CLOPIDOGREL 75MG TABLET PO SCH (09:00)
[2018-09-06] MEDS ORDERED: BARIUM SULFATE(VOLUMEN) 450 ML ORAL.SUSP ONE (09:40)
[2018-09-06 10:06] LABS: VITAMIN B12 SERUM 1170 pg/mL (211-911)
[2018-09-06 11:00] LABS: FOLIC ACID (FOLATE) SERUM > 20.00 ng/mL (>5.38)
[2018-09-06] MEDS ORDERED: IOHEXOL-350 100 ML BOTTLE ONE (14:28)
[2018-09-06] MEDS: GABAPENTIN 300MG CAPSULE PO SCH (19:55)
[2018-09-06] MEDS: ATORVASTATIN CALCIUM 10MG TABLET PO SCH (19:55)
[2018-09-06] MEDS: CLONIDINE 0.1MG TABLET PO PRN (19:55)
[2018-09-07] VITALS: BP 155/38
[2018-09-07 04:00] VITALS: BP 127/35
[2018-09-07] MEDS: LEVOTHYROXINE SODIUM 25MCG TABLET PO SCH (06:19)
[2018-09-07 08:00] VITALS: BP 104/57
[2018-09-07] MEDS: LOSARTAN POTASSIUM 50 MG TABLET PO SCH (09:00)
[2018-09-07] MEDS: AMLODIPINE 5MG TABLET PO SCH (09:00)
[2018-09-07] MEDS: CALCITRIOL 0.25MCG CAPSULE PO SCH ×2 (09:24→18:18)
[2018-09-07] MEDS: FISH OIL/OMEGA-3 FATTY ACIDS 1000MG CAPSULE PO SCH (09:24)
[2018-09-07] MEDS: CLOPIDOGREL 75MG TABLET PO SCH (09:25)
[2018-09-07] MEDS: FERROUS SULFATE 325MG TABLET PO SCH ×3 (09:25→18:18)
[2018-09-07] MEDS: CYANOCOBALAMIN/FA/PYRIDOXINE TABLET PO SCH (09:25)
[2018-09-07] MEDS: ASPIRIN 81MG TABLET PO SCH (09:25)
[2018-09-07] MEDS: GABAPENTIN 100MG CAPSULE PO SCH (09:25)
[2018-09-07] MEDS: ASCORBIC ACID 250 MG TABLET PO SCH (09:25)
[2018-09-07] MEDS: PANTOPRAZOLE SODIUM 40 MG/VIAL IV SCH (09:26)
[2018-09-07] MEDS: DONEPEZIL HCL 5MG TABLET PO SCH (09:26)
[2018-09-07 12:00] VITALS: BP 133/69
[2018-09-07 14:32] LABS: BASOPHILS % 0.5 % (0.0-2.0); EOSINOPHILS % 1.9 % (0.0-5.0); HEMOGLOBIN. 7.7 g/dL (12.0-16.0); LYMPHOCYTES % 7.4 % (20.0-50.0); MEAN CORPUSCULAR VOLUME 101.1 fL (81.0-99.0); MEAN PLATELET VOLUME 9.2 fl (7.4-10.4); NEUTROPHILS % 82.2 % (40.0-76.0); PLATELET 166 x1000/uL (130-400); RED BLOOD CELL COUNT 2.27 mill/uL (4.2-5.4); RED CELL DISTRIBUTION WIDTH 14.4 % (11.6-14.6)
[2018-09-07 16:00] VITALS: BP 119/71
[2018-09-07 17:08] VITALS: BP 119/71
[2018-12-15] MEDS ORDERED: SUCR1TAB MT (15:55)
== END 2018-09-07 19:30 | disposition home or self-care (01) | DRG 682 ==
LOC: ER 16:53 → 8WST 22:02 → EDBEDREQ 22:05 → EDBEDREQTM 22:05 → ENRESERV 23:05
PROVIDERS: ADMIT Internal Medicine; ATTEND Internal Medicine
PROC: 30233N1 Transfusion of Nonautologous Red Blood Cells into Peripheral Vein, Percutaneous Approach (ICD-10-PCS; principal; 2018-09-04)
PROC: 5A1D70Z Performance of Urinary Filtration, Intermittent, Less than 6 Hours Per Day (ICD-10-PCS; 2018-09-06)
DX: I12.0 Hypertensive chronic kidney disease with stage 5 chronic kidney disease or end stage renal disease (principal); N18.6 End stage renal disease; E44.0 Moderate protein-calorie malnutrition; D63.8 Anemia in other chronic diseases classified elsewhere; D53.9 Nutritional anemia, unspecified; E03.9 Hypothyroidism, unspecified; E78.5 Hyperlipidemia, unspecified; I95.9 Hypotension, unspecified; E27.8 Other specified disorders of adrenal gland; Z79.82 Long term (current) use of aspirin; Z85.828 Personal history of other malignant neoplasm of skin; Z99.2 Dependence on renal dialysis; Z86.73 Personal history of transient ischemic attack (TIA), and cerebral infarction without residual deficits; Z79.899 Other long term (current) drug therapy; Z68.24 Body mass index [BMI] 24.0-24.9, adult
CPT/HCPCS: 36415; 71045; 74177; 80048; 82270; 82607; 82728; 82746; 83540; 83550; 83880; 84484; 85014; 85018; 86850; 86900; 86920; 87015; 87045; 87427; 87449; 89055; 93005; 97162; 99285; C1893; C9113; J0885; J7050; P9016; Q9967

== ENCOUNTER 2018-09-14 11:40 | Emergency (ER) | payer MEDICARE ==
[~2018-09-14] VITALS: Ht 157.5 cm; Wt 60.0 kg
[2018-09-14 22:44] VITALS: BP 219/59
== END 2018-09-14 22:45 | disposition home or self-care (01) ==
LOC: ER 11:40
DX: T82.898A Other specified complication of vascular prosthetic devices, implants and grafts, initial encounter (principal); X58.XXXA Exposure to other specified factors, initial encounter; E78.00 Pure hypercholesterolemia, unspecified; E03.9 Hypothyroidism, unspecified; I12.0 Hypertensive chronic kidney disease with stage 5 chronic kidney disease or end stage renal disease; N18.6 End stage renal disease; Z99.2 Dependence on renal dialysis; Z98.890 Other specified postprocedural states; Z79.82 Long term (current) use of aspirin; Z79.899 Other long term (current) drug therapy
CPT/HCPCS: 99283

== ENCOUNTER 2018-12-15 11:20 | Inpatient (IN) | payer MEDICARE ==
[~2018-12-15] VITALS: Ht 160 cm; Wt 56.7 kg
[2018-12-15 12:19] LABS: BASOPHILS % 0.4 % (0.0-2.0); EOSINOPHILS % 1.6 % (0.0-5.0); HEMATOCRIT. 29.4 % (36.0-48.0); HEMOGLOBIN. 9.9 g/dL (12.0-16.0); LYMPHOCYTES % 12.3 % (20.0-50.0); MEAN CORPUSCULAR HEMOGLOBIN 32.4 pg (28.0-32.0); MEAN CORPUSCULAR VOLUME 95.9 fL (81.0-99.0); MEAN PLATELET VOLUME 9.2 fl (7.4-10.4); MONOCYTES % 9.1 % (2.0-8.0); NEUTROPHILS % 76.6 % (40.0-76.0); PLATELET 159 x1000/uL (130-400); RED BLOOD CELL COUNT 3.06 mill/uL (4.2-5.4); RED CELL DISTRIBUTION WIDTH 15.4 % (11.6-14.6)
[2018-12-15 12:26] LABS: CHLORIDE 100 mEq/L (98-107)
[2018-12-15] MEDS ORDERED: HYDRALAZINE HCL 100MG TABLET PO ONE (15:00)
[2018-12-15] MEDS ORDERED: HYDRALAZINE 20MG/ML VIAL IV PRN (15:45)
[2018-12-15] MEDS ORDERED: ACETAMINOPHEN 325MG TABLET PO PRN (15:45)
[2018-12-15] MEDS ORDERED: MAGNESIUM/ALUMINUM HYDROXIDE/SIMETHICONE 30ML UDC PO PRN (15:45)
[2018-12-15] MEDS ORDERED: CLONIDINE 0.1MG TABLET PO PRN (15:45)
[2018-12-15] MEDS ORDERED: GUAIFENESIN 200MG/10ML SUGAR FREE UDC PO PRN (15:45)
[2018-12-15] MEDS ORDERED: DEXTROSE 50% WATER 50ML SYRINGE IV PRN (15:45)
[2018-12-15] MEDS ORDERED: LORAZEPAM 2MG/ML CPJ IV PRN (15:45)
[2018-12-15] MEDS ORDERED: DOCUSATE SODIUM 100MG CAPSULE PO PRN (15:45)
[2018-12-15] MEDS ORDERED: HYDROCODONE/ACETAMINOPHEN 5/325MG TABLET PO PRN (15:45)
[2018-12-15] MEDS ORDERED: ONDANSETRON HCL 4MG/2ML INJ IV PRN (15:45)
[2018-12-15] MEDS ORDERED: HYDROMORPHONE HCL/PF 2MG/ML CPJ IV PRN (15:45)
[2018-12-15] MEDS ORDERED: DIPHENHYDRAMINE 50MG/ML VIAL IV PRN (15:45)
[2018-12-15] MEDS ORDERED: IPRATROPIUM/ALBUTEROL 0.5-3(2.5)MG/3ML NEB INH PRN (15:45)
[2018-12-15] MEDS ORDERED: METO25TA6 PO (15:53)
[2018-12-15] MEDS ORDERED: SUCR1TAB PO (15:55)
[2018-12-15 18:10] VITALS: BP 146/71
[2018-12-15 19:00] VITALS: BP 142/45
[2018-12-15] MEDS ORDERED: BENAZEPRIL 10MG TABLET PO NR (19:00)
[2018-12-15] MEDS: ENOXAPARIN 30MG/0.3ML SYR SUBCUT SCH (22:18)
[2018-12-15] MEDS: SODIUM CHLORIDE 0.9% INJ 3ML FLUSH IVF SCH (22:21)
[2018-12-16] VITALS: BP 123/38
[2018-12-16 01:26] LABS: CREATINE KINASE MB FRACTION 1.1 ng/mL (0.5-3.6)
[2018-12-16 04:00] VITALS: BP 131/35
[2018-12-16 06:04] LABS: HEMATOCRIT. 27.4 % (36.0-48.0); HEMOGLOBIN. 9.1 g/dL (12.0-16.0); LYMPHOCYTES % 22.7 % (20.0-50.0); MEAN CORPUSCULAR HEMOGLOBIN 31.6 pg (28.0-32.0); MEAN CORPUSCULAR VOLUME 95.2 fL (81.0-99.0); MEAN PLATELET VOLUME 9.2 fl (7.4-10.4); MONOCYTES % 10.6 % (2.0-8.0); NEUTROPHILS % 64.7 % (40.0-76.0); PLATELET 161 x1000/uL (130-400); RED BLOOD CELL COUNT 2.88 mill/uL (4.2-5.4); RED CELL DISTRIBUTION WIDTH 15.8 % (11.6-14.6)
[2018-12-16] MEDS: SODIUM CHLORIDE 0.9% INJ 3ML FLUSH IVF SCH ×3 (06:26→21:14)
[2018-12-16] MEDS: BLOOD SUGAR DIAGNOSTIC STRIP TEST SCH ×4 (06:27→18:46)
[2018-12-16 06:47] LABS: CHLORIDE 101 mEq/L (98-107)
[2018-12-16 07:02] LABS: LDL CHOLESTEROL 25 mg/dL (5-100)
[2018-12-16 07:03] LABS: CREATINE KINASE 22 IU/L (26-192)
[2018-12-16 07:07] LABS: CREATINE KINASE MB FRACTION < 1.0 ng/mL (0.5-3.6)
[2018-12-16 07:08] LABS: HDL CHOLESTEROL 44 mg/dL (40-59)
[2018-12-16 08:00] VITALS: BP 144/43
[2018-12-16] MEDS ORDERED: BENAZEPRIL 10MG TABLET PO SCH (09:00)
[2018-12-16] MEDS: ASPIRIN 81MG EC TABLET PO SCH (09:27)
[2018-12-16 12:00] VITALS: BP 138/56
[2018-12-16] MEDS: CLOPIDOGREL 75MG TABLET PO SCH (12:55)
[2018-12-16] MEDS: LOSARTAN POTASSIUM 50 MG TABLET PO SCH ×2 (12:55→21:13)
[2018-12-16 16:00] VITALS: BP 127/64
[2018-12-16 20:00] VITALS: BP 164/61
[2018-12-16] MEDS: ENOXAPARIN 30MG/0.3ML SYR SUBCUT SCH (20:20)
[2018-12-16] MEDS: GABAPENTIN 300MG CAPSULE PO SCH (21:14)
[2018-12-17] VITALS: BP 210/60
[2018-12-17] MEDS ORDERED: EPOETIN ALFA 4000UNITS/ML VIAL SUBCUT NR ×3 (00:30→23:00)
[2018-12-17 04:00] VITALS: BP 137/54
[2018-12-17] MEDS: SODIUM CHLORIDE 0.9% INJ 3ML FLUSH IVF SCH ×3 (06:13→21:05)
[2018-12-17] MEDS: BLOOD SUGAR DIAGNOSTIC STRIP TEST SCH ×4 (06:13→18:26)
[2018-12-17 07:10] LABS: BASOPHILS % 0.8 % (0.0-2.0); EOSINOPHILS % 2.5 % (0.0-5.0); HEMATOCRIT. 26.9 % (36.0-48.0); LYMPHOCYTES % 21.3 % (20.0-50.0); MEAN CORPUSCULAR HEMOGLOBIN 31.7 pg (28.0-32.0); MEAN CORPUSCULAR VOLUME 94.4 fL (81.0-99.0); MEAN PLATELET VOLUME 9.4 fl (7.4-10.4); NEUTROPHILS % 65.4 % (40.0-76.0); PLATELET 153 x1000/uL (130-400); RED BLOOD CELL COUNT 2.85 mill/uL (4.2-5.4); RED CELL DISTRIBUTION WIDTH 15.5 % (11.6-14.6)
[2018-12-17 07:37] LABS: CREATINE KINASE MB FRACTION 1.1 ng/mL (0.5-3.6)
[2018-12-17 08:00] VITALS: BP 113/37
[2018-12-17] MEDS: LOSARTAN POTASSIUM 50 MG TABLET PO SCH ×2 (09:00→21:05)
[2018-12-17] MEDS: CLOPIDOGREL 75MG TABLET PO SCH (09:40)
[2018-12-17] MEDS: ASPIRIN 81MG EC TABLET PO SCH (09:40)
[2018-12-17 12:00] VITALS: BP 119/68
[2018-12-17] MEDS ORDERED: MAGNESIUM 2 G PREMIX 50 ML IV NR (12:00)
[2018-12-17] MEDS: LEVOTHYROXINE SODIUM 25MCG TABLET PO SCH (13:59)
[2018-12-17 16:00] VITALS: BP 129/37
[2018-12-17 20:00] VITALS: BP 131/39
[2018-12-17] MEDS: ENOXAPARIN 30MG/0.3ML SYR SUBCUT SCH (21:05)
[2018-12-17] MEDS: GABAPENTIN 300MG CAPSULE PO SCH (21:05)
[2018-12-17] MEDS ORDERED: IRON SUCROSE COMPLEX 100 MG/5 ML ML IV SCH (23:00)
[2018-12-18] VITALS: BP 163/45
[2018-12-18] MEDS: BLOOD SUGAR DIAGNOSTIC STRIP TEST SCH ×3 (00:05→12:39)
[2018-12-18 04:00] VITALS: BP_SYST 121; BP_SYST 127; BP_SYST 91; BP_DIAS 38; BP_DIAS 41; BP_DIAS 43
[2018-12-18 06:00] LABS: BASOPHILS % 1.2 % (0.0-2.0); EOSINOPHILS % 3.1 % (0.0-5.0); HEMOGLOBIN. 10.3 g/dL (12.0-16.0); MEAN CORPUSCULAR HEMOGLOBIN 31.8 pg (28.0-32.0); MEAN CORPUSCULAR VOLUME 95.8 fL (81.0-99.0); MEAN PLATELET VOLUME 9.3 fl (7.4-10.4); MONOCYTES % 9.4 % (2.0-8.0); NEUTROPHILS % 60.3 % (40.0-76.0); PLATELET 147 x1000/uL (130-400); RED BLOOD CELL COUNT 3.24 mill/uL (4.2-5.4); RED CELL DISTRIBUTION WIDTH 15.8 % (11.6-14.6)
[2018-12-18] MEDS: SODIUM CHLORIDE 0.9% INJ 3ML FLUSH IVF SCH (06:10)
[2018-12-18 07:10] LABS: CHLORIDE 106 mEq/L (98-107)
[2018-12-18 08:30] VITALS: BP 124/40
[2018-12-18] MEDS: CLOPIDOGREL 75MG TABLET PO SCH (09:14)
[2018-12-18] MEDS: ASPIRIN 81MG EC TABLET PO SCH (09:14)
[2018-12-18] MEDS: LEVOTHYROXINE SODIUM 25MCG TABLET PO SCH (09:14)
[2018-12-18] MEDS: LOSARTAN POTASSIUM 50 MG TABLET PO SCH (09:15)
[2018-12-18 10:34] VITALS: BP 124/40
[2018-12-18 12:00] VITALS: BP 153/48
[2018-12-20] MEDS ORDERED: EPOETIN ALFA 4000UNITS/ML VIAL SUBCUT SCH (21:00)
== END 2018-12-18 14:31 | disposition home or self-care (01) | DRG 73 ==
LOC: ER 11:20 → 7WST 14:11 → EDBEDREQ 14:18 → ENRESERV 17:03
PROVIDERS: ADMIT Internal Medicine; ATTEND Internal Medicine
PROC: 5A1D70Z Performance of Urinary Filtration, Intermittent, Less than 6 Hours Per Day (ICD-10-PCS; principal; 2018-12-17)
DX: G90.8 Other disorders of autonomic nervous system (principal); N18.6 End stage renal disease; E43 Unspecified severe protein-calorie malnutrition; I13.2 Hypertensive heart and chronic kidney disease with heart failure and with stage 5 chronic kidney disease, or end stage renal disease; E16.2 Hypoglycemia, unspecified; D64.9 Anemia, unspecified; E03.9 Hypothyroidism, unspecified; E78.00 Pure hypercholesterolemia, unspecified; E83.42 Hypomagnesemia; F03.90 Unspecified dementia, unspecified severity, without behavioral disturbance, psychotic disturbance, mood disturbance, and anxiety; F32.9 Major depressive disorder, single episode, unspecified; R26.9 Unspecified abnormalities of gait and mobility; G62.9 Polyneuropathy, unspecified; I25.10 Atherosclerotic heart disease of native coronary artery without angina pectoris; I50.9 Heart failure, unspecified; J44.9 Chronic obstructive pulmonary disease, unspecified; Z99.2 Dependence on renal dialysis; Z79.02 Long term (current) use of antithrombotics/antiplatelets; Z79.890 Hormone replacement therapy; Z79.899 Other long term (current) drug therapy; Z68.22 Body mass index [BMI] 22.0-22.9, adult; Z86.73 Personal history of transient ischemic attack (TIA), and cerebral infarction without residual deficits; Z87.891 Personal history of nicotine dependence
CPT/HCPCS: 36415; 71045; 80048; 80061; 82550; 82553; 82962; 83735; 84443; 84484; 85379; 93005; 93880; 93970; 97162; 99285; A6261; C1893; J0360; J0885; J1650; J3475; J7050

== ENCOUNTER 2019-02-02 11:07 | Inpatient (IN) | payer MEDICARE ==
[~2019-02-02] VITALS: Ht 157.5 cm; Wt 55.8 kg
[~2019-02-02 11:07] MED LIST changes: -ASPI-1159 PO; +ASPI-1393 PO; -LOSA50TA20 PO; +LOSA50TA41 PO; +METO25TA6 PO; +SUCR1TAB PO
[2019-02-02] MEDS ORDERED: DEXTROSE 50% WATER 50ML SYRINGE IV NR (13:15)
[2019-02-02 13:29] LABS: BASOPHILS % 0.7 % (0.0-2.0); EOSINOPHILS % 1.6 % (0.0-5.0); HEMATOCRIT. 33.3 % (36.0-48.0); HEMOGLOBIN. 11.1 g/dL (12.0-16.0); LYMPHOCYTES % 8.5 % (20.0-50.0); MEAN CORPUSCULAR HEMOGLOBIN 31.4 pg (28.0-32.0); MEAN CORPUSCULAR VOLUME 94.5 fL (81.0-99.0); MEAN PLATELET VOLUME 7.9 fl (7.4-10.4); MONOCYTES % 7.4 % (2.0-8.0); NEUTROPHILS % 81.8 % (40.0-76.0); PLATELET 182 x1000/uL (130-400); RED BLOOD CELL COUNT 3.53 mill/uL (4.2-5.4); RED CELL DISTRIBUTION WIDTH 17.3 % (11.6-14.6)
[2019-02-02 13:32] LABS: CHLORIDE 101 mEq/L (98-107)
[2019-02-02 14:16] LABS: PROTHROMBIN TIME 10.7 sec (9.6-11.0)
[2019-02-02] MEDS ORDERED: DEXT 10% WATER 1,000 ML IV ONE (16:00)
[2019-02-02 23:00] VITALS: BP 187/59
[2019-02-03] VITALS: BP 187/59
[2019-02-03] MEDS ORDERED: ONDANSETRON HCL 4MG TABLET PO PRN (00:15)
[2019-02-03] MEDS ORDERED: ACETAMINOPHEN 325MG TABLET PO PRN (00:15)
[2019-02-03] MEDS ORDERED: HYDROCODONE/ACETAMINOPHEN 5/325MG TABLET PO PRN (00:15)
[2019-02-03] MEDS: CLONIDINE 0.1MG TABLET PO PRN (02:04)
[2019-02-03] MEDS ORDERED: FISH MT (02:46)
[2019-02-03 04:00] VITALS: BP 169/49
[2019-02-03 08:00] VITALS: BP 119/41
[2019-02-03 09:01] LABS: BASOPHILS % 0.7 % (0.0-2.0); EOSINOPHILS % 2.5 % (0.0-5.0); HEMATOCRIT. 29.4 % (36.0-48.0); HEMOGLOBIN. 9.9 g/dL (12.0-16.0); LYMPHOCYTES % 13.8 % (20.0-50.0); MEAN CORPUSCULAR HEMOGLOBIN 31.2 pg (28.0-32.0); MEAN CORPUSCULAR VOLUME 92.7 fL (81.0-99.0); MEAN PLATELET VOLUME 7.9 fl (7.4-10.4); MONOCYTES % 7.4 % (2.0-8.0); NEUTROPHILS % 75.6 % (40.0-76.0); PLATELET 211 x1000/uL (130-400); RED BLOOD CELL COUNT 3.17 mill/uL (4.2-5.4)
[2019-02-03 12:10] VITALS: BP 140/43
[2019-02-03 16:15] VITALS: BP 130/40
[2019-02-03] MEDS: LOSARTAN POTASSIUM 50 MG TABLET PO SCH (18:45)
[2019-02-03] MEDS: CLOPIDOGREL 75MG TABLET PO SCH (19:02)
[2019-02-03] MEDS: ASPIRIN 81MG TABLET PO SCH (19:03)
[2019-02-03] MEDS: LEVOTHYROXINE SODIUM 25MCG TABLET PO SCH (19:03)
[2019-02-03 20:00] VITALS: BP 147/55
[2019-02-03] MEDS: METOPROLOL TARTRATE 25MG TABLET PO SCH (21:00)
[2019-02-03] MEDS: ATORVASTATIN CALCIUM 20MG TABLET PO SCH (22:08)
[2019-02-03] MEDS: CALCITRIOL 0.25MCG CAPSULE PO SCH (22:08)
[2019-02-03] MEDS: SUCRALFATE 1 G/10 ML UDC PO SCH (22:08)
[2019-02-03] MEDS: CEFTRIAXONE 1 G PREMIX 50 ML IV SCH (22:09)
[2019-02-03] MEDS ORDERED: AZITHROMYCIN 500 MG in DEXT 5% WATER 250 ML IV NR (23:30)
[2019-02-04] VITALS: BP 181/49
[2019-02-04] MEDS: CLONIDINE 0.1MG TABLET PO PRN ×2 (00:11→20:41)
[2019-02-04] MEDS: IRON SUCROSE COMPLEX 100 MG in SODIUM CHLORIDE 0.9% 50 ML IV SCH (02:45)
[2019-02-04 04:00] VITALS: BP 143/42
[2019-02-04] MEDS: SUCRALFATE 1 G/10 ML UDC PO SCH ×4 (06:30→20:29)
[2019-02-04] MEDS: LEVOTHYROXINE SODIUM 25MCG TABLET PO SCH (06:30)
[2019-02-04 08:00] VITALS: BP 121/37
[2019-02-04] MEDS: METOPROLOL TARTRATE 25MG TABLET PO SCH ×2 (08:04→20:40)
[2019-02-04] MEDS ORDERED: CEFTRIAXONE SODIUM 1 G/VIAL IV ONE (09:00)
[2019-02-04] MEDS: LOSARTAN POTASSIUM 50 MG TABLET PO SCH (09:25)
[2019-02-04] MEDS: CLOPIDOGREL 75MG TABLET PO SCH (09:25)
[2019-02-04] MEDS: ASPIRIN 81MG TABLET PO SCH (09:25)
[2019-02-04] MEDS: CALCITRIOL 0.25MCG CAPSULE PO SCH (09:25)
[2019-02-04 12:16] VITALS: BP 148/46
[2019-02-04 16:09] VITALS: BP 110/41
[2019-02-04 16:22] LABS: BASOPHILS % 0.8 % (0.0-2.0); EOSINOPHILS % 3.7 % (0.0-5.0); LYMPHOCYTES % 12.6 % (20.0-50.0); MEAN CORPUSCULAR HEMOGLOBIN 30.9 pg (28.0-32.0); MEAN CORPUSCULAR VOLUME 92.7 fL (81.0-99.0); MEAN PLATELET VOLUME 8.2 fl (7.4-10.4); MONOCYTES % 5.8 % (2.0-8.0); NEUTROPHILS % 77.1 % (40.0-76.0); PLATELET 201 x1000/uL (130-400); RED BLOOD CELL COUNT 3.24 mill/uL (4.2-5.4); RED CELL DISTRIBUTION WIDTH 16.9 % (11.6-14.6)
[2019-02-04 16:45] LABS: T4 FREE 1.2 ng/dL (0.76-1.46)
[2019-02-04 16:52] LABS: FOLIC ACID (FOLATE) SERUM 8.4 ng/mL (>5.38)
[2019-02-04 20:00] VITALS: BP 179/95
[2019-02-04] MEDS: CEFTRIAXONE 1 G PREMIX 50 ML IV SCH (20:29)
[2019-02-04] MEDS: ATORVASTATIN CALCIUM 20MG TABLET PO SCH (20:29)
[2019-02-04] MEDS ORDERED: EPOETIN ALFA 4000UNITS/ML VIAL SUBCUT SCH (21:00)
[2019-02-04] MEDS: AZITHROMYCIN 500MG in DEXTROSE 5% WATER 250ML IV SCH (22:07)
[2019-02-04] MEDS: BENAZEPRIL 10MG TABLET PO SCH (22:50)
[2019-02-05] VITALS: BP 140/41
[2019-02-05 04:00] VITALS: BP 151/44
[2019-02-05] MEDS: SUCRALFATE 1 G/10 ML UDC PO SCH ×4 (07:00→21:28)
[2019-02-05] MEDS: LEVOTHYROXINE SODIUM 25MCG TABLET PO SCH (07:00)
[2019-02-05 08:00] VITALS: BP 162/43
[2019-02-05] MEDS ORDERED: METOPROLOL TARTRATE 25MG TABLET PO SCH (09:00)
[2019-02-05] MEDS: ASPIRIN 81MG TABLET PO SCH (09:12)
[2019-02-05] MEDS: CALCITRIOL 0.25MCG CAPSULE PO SCH (09:12)
[2019-02-05] MEDS: IRON SUCROSE COMPLEX 100 MG in SODIUM CHLORIDE 0.9% 50 ML IV SCH (09:12)
[2019-02-05] MEDS: LOSARTAN POTASSIUM 50 MG TABLET PO SCH (09:12)
[2019-02-05] MEDS: BENAZEPRIL 10MG TABLET PO SCH (09:13)
[2019-02-05] MEDS: CLOPIDOGREL 75MG TABLET PO SCH (09:50)
[2019-02-05 12:00] VITALS: BP 173/47
[2019-02-05] MEDS: CLONIDINE 0.1MG TABLET PO PRN ×3 (12:16→23:47)
[2019-02-05 16:00] VITALS: BP 140/92
[2019-02-05 20:00] VITALS: BP 155/45
[2019-02-05] MEDS: CEFTRIAXONE 1 G PREMIX 50 ML IV SCH (20:19)
[2019-02-05] MEDS: AZITHROMYCIN 500MG in DEXTROSE 5% WATER 250ML IV SCH (21:28)
[2019-02-05] MEDS: ATORVASTATIN CALCIUM 20MG TABLET PO SCH (21:28)
[2019-02-06] VITALS: BP 182/56
[2019-02-06] MEDS: CLONIDINE 0.1MG TABLET PO PRN ×3 (03:54→21:29)
[2019-02-06 04:00] VITALS: BP 194/54
[2019-02-06] MEDS: SUCRALFATE 1 G/10 ML UDC PO SCH ×4 (06:03→21:28)
[2019-02-06] MEDS: LEVOTHYROXINE SODIUM 25MCG TABLET PO SCH (06:03)
[2019-02-06] MEDS: CLOPIDOGREL 75MG TABLET PO SCH (08:46)
[2019-02-06] MEDS: LOSARTAN POTASSIUM 50 MG TABLET PO SCH (08:46)
[2019-02-06] MEDS: ASPIRIN 81MG TABLET PO SCH (08:46)
[2019-02-06] MEDS: CALCITRIOL 0.25MCG CAPSULE PO SCH (08:46)
[2019-02-06] MEDS: BENAZEPRIL 10MG TABLET PO SCH (08:52)
[2019-02-06] MEDS: IRON SUCROSE COMPLEX 100 MG in SODIUM CHLORIDE 0.9% 50 ML IV SCH (08:55)
[2019-02-06 16:00] VITALS: BP 186/43
[2019-02-06] MEDS: CEFTRIAXONE 1 G PREMIX 50 ML IV SCH (19:45)
[2019-02-06 20:00] VITALS: BP 186/52
[2019-02-06] MEDS: AZITHROMYCIN 500MG in DEXTROSE 5% WATER 250ML IV SCH (21:29)
[2019-02-06] MEDS: ATORVASTATIN CALCIUM 20MG TABLET PO SCH (21:29)
[2019-02-07] VITALS: BP 126/48
[2019-02-07 04:00] VITALS: BP 126/48
[2019-02-07] MEDS: SUCRALFATE 1 G/10 ML UDC PO SCH ×4 (06:37→20:56)
[2019-02-07] MEDS: LEVOTHYROXINE SODIUM 25MCG TABLET PO SCH (06:37)
[2019-02-07 08:00] VITALS: BP 157/58
[2019-02-07] MEDS: ASPIRIN 81MG TABLET PO SCH (08:55)
[2019-02-07] MEDS: IRON SUCROSE COMPLEX 100 MG in SODIUM CHLORIDE 0.9% 50 ML IV SCH (08:55)
[2019-02-07] MEDS: LOSARTAN POTASSIUM 50 MG TABLET PO SCH (08:55)
[2019-02-07] MEDS: CLOPIDOGREL 75MG TABLET PO SCH (08:56)
[2019-02-07] MEDS: CALCITRIOL 0.25MCG CAPSULE PO SCH (08:56)
[2019-02-07] MEDS: BENAZEPRIL 10MG TABLET PO SCH ×2 (08:56→20:58)
[2019-02-07 12:00] VITALS: BP 179/49
[2019-02-07 16:00] VITALS: BP 136/52
[2019-02-07 20:00] VITALS: BP 152/51
[2019-02-07] MEDS: CEFTRIAXONE 1 G PREMIX 50 ML IV SCH (20:56)
[2019-02-07] MEDS: ATORVASTATIN CALCIUM 20MG TABLET PO SCH (20:58)
[2019-02-07] MEDS: AZITHROMYCIN 500MG in DEXTROSE 5% WATER 250ML IV SCH (21:39)
[2019-02-08] VITALS: BP 134/53
[2019-02-08 04:00] VITALS: BP 150/76
[2019-02-08] MEDS: LEVOTHYROXINE SODIUM 25MCG TABLET PO SCH (06:20)
[2019-02-08] MEDS: SUCRALFATE 1 G/10 ML UDC PO SCH ×3 (06:20→17:46)
[2019-02-08 07:42] VITALS: BP 181/53
[2019-02-08] MEDS ORDERED: IRON SUCROSE COMPLEX 100 MG/5 ML ML IV ONE (08:15)
[2019-02-08] MEDS: IRON SUCROSE COMPLEX 100 MG in SODIUM CHLORIDE 0.9% 50 ML IV SCH (08:53)
[2019-02-08] MEDS: CLOPIDOGREL 75MG TABLET PO SCH (08:56)
[2019-02-08] MEDS: BENAZEPRIL 10MG TABLET PO SCH (08:56)
[2019-02-08] MEDS: ASPIRIN 81MG TABLET PO SCH (08:56)
[2019-02-08] MEDS: LOSARTAN POTASSIUM 50 MG TABLET PO SCH (08:56)
[2019-02-08] MEDS: CALCITRIOL 0.25MCG CAPSULE PO SCH (08:58)
[2019-02-08 10:47] LABS: HEMATOCRIT. 28.5 % (36.0-48.0); HEMOGLOBIN. 9.5 g/dL (12.0-16.0); MEAN CORPUSCULAR HEMOGLOBIN 30.9 pg (28.0-32.0); MEAN CORPUSCULAR VOLUME 92.7 fL (81.0-99.0); MEAN PLATELET VOLUME 8.6 fl (7.4-10.4); PLATELET 190 x1000/uL (130-400); RED BLOOD CELL COUNT 3.07 mill/uL (4.2-5.4); RED CELL DISTRIBUTION WIDTH 17.1 % (11.6-14.6)
[2019-02-08 10:55] LABS: CHLORIDE 99 mEq/L (98-107)
[2019-02-08] MEDS: CLONIDINE 0.1MG TABLET PO PRN (12:09)
[2019-02-08 12:16] VITALS: BP 194/60
[2019-02-08] MEDS ORDERED: CLONIDINE 0.2MG TABLET PO NR (15:45)
[2019-02-08 16:12] VITALS: BP 194/69
[2019-02-08 16:25] VITALS: BP 194/69
[2019-02-08] MEDS: HYDRALAZINE 10 MG in SODIUM CHLORIDE 0.9% 49.5 ML IV NR ×2 (17:10→17:46)
[2019-02-08] MEDS ORDERED: AZITHROMYCIN 500 MG TABLET PO SCH (21:00)
[2019-02-08 21:48] LABS: PLATELET ESTIMATE NORMAL
== END 2019-02-08 19:50 | DRG 64 ==
LOC: ER 11:07 → 6EST 16:30 → ENRESERV 20:00
PROVIDERS: ADMIT Internal Medicine; ATTEND Internal Medicine
PROC: 5A1D70Z Performance of Urinary Filtration, Intermittent, Less than 6 Hours Per Day (ICD-10-PCS; 2019-02-04)
PROC: 4A00X4Z Measurement of Central Nervous Electrical Activity, External Approach (ICD-10-PCS; principal; 2019-02-06)
PROC: 5A1D70Z Performance of Urinary Filtration, Intermittent, Less than 6 Hours Per Day (ICD-10-PCS; 2019-02-07)
DX: I63.9 Cerebral infarction, unspecified (principal); N18.6 End stage renal disease; J18.1 Lobar pneumonia, unspecified organism; E43 Unspecified severe protein-calorie malnutrition; G92 Toxic encephalopathy; E87.1 Hypo-osmolality and hyponatremia; I12.0 Hypertensive chronic kidney disease with stage 5 chronic kidney disease or end stage renal disease; E16.2 Hypoglycemia, unspecified; D63.8 Anemia in other chronic diseases classified elsewhere; E78.5 Hyperlipidemia, unspecified; G20 Parkinson's disease; R00.1 Bradycardia, unspecified; F02.80 Dementia in other diseases classified elsewhere, unspecified severity, without behavioral disturbance, psychotic disturbance, mood disturbance, and anxiety; M54.12 Radiculopathy, cervical region; M54.16 Radiculopathy, lumbar region; Z98.891 History of uterine scar from previous surgery; Z91.15 Patient's noncompliance with renal dialysis; Z99.2 Dependence on renal dialysis; Z68.22 Body mass index [BMI] 22.0-22.9, adult
CPT/HCPCS: 36415; 70551; 71045; 80048; 82140; 82607; 82746; 82962; 83036; 84439; 84443; 84481; 84484; 92610; 93005; 97162; 99285; J0360; J0456; J0696; J0885; J7040; J7060

== ENCOUNTER 2019-02-14 08:44 | Inpatient (IN) | payer MEDICARE ==
[2019-02-14] VITALS (7 sets, daily range): BP systolic 106–133; BP diastolic 40–67
[~2019-02-14] VITALS: Ht 157.5 cm; Wt 57.2 kg
[~2019-02-14 08:44] MED LIST changes: -ASCO500C15 PO; +FISH MT
[2019-02-14 10:36] LABS: HEMATOCRIT. 28.9 % (36.0-48.0); HEMOGLOBIN. 9.4 g/dL (12.0-16.0); MEAN CORPUSCULAR HEMOGLOBIN 30.5 pg (28.0-32.0); MEAN CORPUSCULAR VOLUME 93.6 fL (81.0-99.0); MEAN PLATELET VOLUME 8.3 fl (7.4-10.4); PLATELET 229 x1000/uL (130-400); RED BLOOD CELL COUNT 3.08 mill/uL (4.2-5.4); RED CELL DISTRIBUTION WIDTH 17.2 % (11.6-14.6)
[2019-02-14 10:40] LABS: CHLORIDE 103 mEq/L (98-107)
[2019-02-14 10:41] LABS: PROTHROMBIN TIME 10.7 sec (9.6-11.0)
[2019-02-14 11:07] LABS: PLATELET ESTIMATE NORMAL
[2019-02-14] MEDS ORDERED: PIPERACILLIN/TAZ 3.375G PREMIX 50 ML IV ONE (12:30)
[2019-02-14] MEDS ORDERED: VANCOMYCIN 1 G PREMIX 200 ML IV ONE (12:30)
[2019-02-14] MEDS ORDERED: ASCO500C15 PO (16:25)
[2019-02-14] MEDS ORDERED: MEMA5TAB15 PO (16:26)
[2019-02-14] MEDS: PIPERACILLIN/TAZ 2.25G PREMIX 50 ML IV SCH (20:20)
[2019-02-14] MEDS ORDERED: HEPARIN 5000 UNITS/ML VIAL SUBCUT SCH (22:00)
[2019-02-15] VITALS (7 sets, daily range): BP systolic 111–156; BP diastolic 39–56
[2019-02-15 02:42] LABS: CLARITY URINE TURBID (CLEAR); COLOR URINE YELLOW (YELLOW); KETONES URINE TRACE (NEGATIVE); LEUKOCYTE ESTERASE URINE 1+ (NEGATIVE); NITRITE URINE NEGATIVE (NEGATIVE); OCCULT BLOOD URINE 2+ (NEGATIVE); PROTEIN URINE 2+ (NEGATIVE); SPECIFIC GRAVITY URINE 1.018 (1.005-1.030); UROBILINOGEN URINE 0.2 E.U./dL (0.2-1.0)
[2019-02-15] MEDS: PIPERACILLIN/TAZ 2.25G PREMIX 50 ML IV SCH ×2 (04:33→11:43)
[2019-02-15] MEDS: SUCRALFATE 1 G/10 ML UDC PO SCH ×2 (06:41→11:16)
[2019-02-15] MEDS ORDERED: LEVOTHYROXINE SODIUM 25MCG TABLET PO SCH (06:50)
[2019-02-15] MEDS ORDERED: ASPIRIN 81MG TABLET PO SCH (09:00)
[2019-02-15] MEDS ORDERED: CLOPIDOGREL 75MG TABLET PO SCH (09:00)
[2019-02-15] MEDS ORDERED: CALCITRIOL 0.25MCG CAPSULE PO SCH (09:00)
[2019-02-15] MEDS: FERROUS SULFATE 325MG TABLET PO SCH ×2 (09:02→11:43)
[2019-02-15 10:18] LABS: HEMATOCRIT 26.7 % (36.0-48.0); HEMOGLOBIN 8.8 g/dL (12.0-16.0); MEAN CORPUSCULAR HEMOGLOBIN 30.2 pg (28.0-32.0); MEAN CORPUSCULAR VOLUME 92.3 fL (81.0-99.0); PLATELET 226 x1000/uL (130-400); RED BLOOD CELL COUNT 2.89 mill/uL (4.2-5.4); RED CELL DISTRIBUTION WIDTH 17.1 % (11.6-14.6)
[2019-02-15] MEDS ORDERED: VANCOMYCIN 500 MG PREMIX 100 ML IV NR (15:00)
== END 2019-02-15 14:18 | disposition short-term general hospital (02) | DRG 871 ==
LOC: ER 08:44 → 3WST 13:46 → EDBEDREQ 13:50 → EDBEDREQTM 13:50 → ENRESERV 14:50
PROVIDERS: ADMIT Internal Medicine; ATTEND Internal Medicine
DX: A41.9 Sepsis, unspecified organism (principal); L89.154 Pressure ulcer of sacral region, stage 4; R65.21 Severe sepsis with septic shock; E43 Unspecified severe protein-calorie malnutrition; N18.6 End stage renal disease; J18.9 Pneumonia, unspecified organism; I12.0 Hypertensive chronic kidney disease with stage 5 chronic kidney disease or end stage renal disease; G93.40 Encephalopathy, unspecified; N39.0 Urinary tract infection, site not specified; D64.9 Anemia, unspecified; E11.22 Type 2 diabetes mellitus with diabetic chronic kidney disease; E78.5 Hyperlipidemia, unspecified; Z86.73 Personal history of transient ischemic attack (TIA), and cerebral infarction without residual deficits; Z99.2 Dependence on renal dialysis; Z68.23 Body mass index [BMI] 23.0-23.9, adult; Z79.899 Other long term (current) drug therapy; Z79.82 Long term (current) use of aspirin; Z87.01 Personal history of pneumonia (recurrent)
CPT/HCPCS: 36415; 71045; 80048; 83605; 84134; 84145; 84484; 85027; 87077; 87186; 92610; 93005; 96374; 99285; A6261; J1644; J2543; J3370; J7050; A4315